=== PATIENT | male | born 1970 | race Two or more races ===

== ENCOUNTER → 2025-01-05 | Outpatient (CLI) | payer MEDICAID, SELFPAY ==
--- NOTE | 2025-01-05 15:13 | XR_ITS ---
Examination: PA lateral chest 2 views TECHNIQUE: Upright PA lateral chest 2 views Date and time: January 05, 2025 1539 hours INDICATIONS: Coughing beginning 4 days ago. FINDINGS: Early pneumonia in the posterior basal segment right lower lobe on the lateral view Normal heart size No pulmonary edema IMPRESSION: Early pneumonia posterior basal segment right lower lobe
== END | disposition home or self-care (01) ==
LOC: CDIM 15:06
PROVIDERS: PCP Nurse Practitioner Family; Referring Provider Nurse Practitioner Family; Visit Provider Nurse Practitioner Family
DX: J18.9 Pneumonia, unspecified organism (principal); Z91.89 Other specified personal risk factors, not elsewhere classified
CPT/HCPCS: 71046

== ENCOUNTER 2025-03-27 12:08 | Inpatient (IN) | payer MEDICAID, SELFPAY ==
[2025-03-27] VITALS (15 sets, daily range): BP systolic 101–138; BP diastolic 58–91; PULSE 73–90; RESP 13–20; TEMP 36.2–37; O2SAT 96–100; BMI 24.2; BMI 26.4
--- NOTE | 2025-03-27 13:11 | PD.EDGIBLD ---
ED GI Bleed RME/HPI General Chief complaint: GI Bleed Stated complaint: DARK STOOLS SINCE LAST NIGHT Time Seen by Provider: 03/27/25 12:12 Arrival date/time: 03/27/25 12:08 Limitations: no limitations RME / HPI RME / HPI Narrative: 55 year old male with history of hypertension, diabetes, liver cirrhosis secondary to alcohol abuse, GI bleed, thrombocytopenia, GERD presents to the ED for evaluation of black stools beginning last night. Accompanied by periumbilical and umbilical discomfort (which he attributes to a hernia), nausea, global weakness, and dizziness. No other associated symptoms reported. Denies fevers, chills, chest pain, cough, shortness of breath, vomiting, or bright red blood per rectum. Patient states he had a GI bleed and evaluated at [facility] 09/[address] Adame. States he had an EGD which showed bleeding varices with 2 band placements. Related Data Home Medications ?Medication ?Instructions ?Recorded ?Confirmed lisinopril 10 mg tablet 10 mg PO QDAY 09/21/17 01/20/25 furosemide 20 mg tablet 20 mg PO QDAY 01/20/25 01/20/25 metformin 1,000 mg tablet,extended 1,000 mg PO BID 01/20/25 01/20/25 release 24hr (osmotic) pantoprazole 40 mg tablet,delayed 40 mg PO QDAY 01/20/25 01/20/25 release propranolol 10 mg tablet 10 mg PO .QD 01/20/25 01/20/25 rosuvastatin 10 mg tablet 10 mg PO QDAY 01/20/25 01/20/25 spironolactone 25 mg tablet 25 mg PO QDAY 01/20/25 01/20/25 Allergies Allergy/AdvReac Type Severity Reaction Status Date / Time No Known Allergies Allergy Unverified 03/27/25 17:26 Review of Systems Review of Systems Systems Reviewed: All systems reviewed, normal except as documented Past Medical History Past Medical History CARDIAC: Positive Hypercholesterolemia and Hypertension GASTROINTESTINAL: Positive Cirrhosis and Esophageal Varices ENDOCRINE: Positive Diabetes Mellitus Type 1 OTHER HISTORY: Positive Blood Transfusions Family History FAMILY HISTORY: Negative Family Respiratory Disorders, Family Cardiac Disorders or Family Gastrointestinal Problems Social History SMOKING STATUS: Never smoker SUBSTANCE USE: former substance user (cocaine, meth) ED Exam General Limitations: Present no limitations General appearance: Present alert and other (Pale) Head Head exam: Present atraumatic Eye Eye exam: Present normal appearance, PERRL and EOMI ENT ENT exam: Present normal exam, normal oropharynx and mucous membranes moist Neck Neck exam: Present normal inspection, full ROM and trachea midline Chest Chest inspection: Present normal inspection and symmetric chest wall rise Respiratory Respiratory exam: Present normal lung sounds bilaterally Cardiovascular Cardiovascular exam: Present regular rate, normal rhythm and normal heart sounds Abdominal Exam Abdominal exam: Present soft, tenderness (slight tenderness to the umbilical area ), normal bowel sounds and other (No percussion tenderness); Absent guarding, rebound or rigidity Rectal Exam Rectal exam: Present heme (+) stool (dark colored stool ) Extremities Exam Extremities exam: Present normal inspection and full ROM Back Exam Back exam: Present normal inspection and full ROM Neurological Exam Neurological exam: Present alert, oriented X3 and CN II-XII intact Psychiatric Psychiatric exam: Present normal affect and normal mood Skin Skin exam: Present warm, dry, intact, pallor and other (Areas of hypopigmentation ) Course Quality Measures none Orders Category Date Time Status COVID-19 Screening Questionnaire NOW Care 03/27/25 17:16 Active Front End Software Engineer NOW Care 03/27/25 15:36 Active Front End Software Engineer STAT Care 03/27/25 13:12 Active Continuous Pulse Oximetry NOW Care 03/27/25 15:36 Completed Continuous Pulse Oximetry STAT Care 03/27/25 13:12 Completed Decision to Admit X1 Care 03/27/25 17:16 Completed EKG (ED ONLY) *Do not use* NOW Care 03/27/25 15:36 Completed Insert IV NOW Care 03/27/25 15:36 Active NPO STAT Care 03/27/25 13:12 Active Transfuse,blood/blood products NOW Care 03/27/25 14:[address] abdomen pelvis wo con Stat Exams 03/27/25 13:12 Completed EKG (ED Only) Stat Exams 03/27/25 15:36 Ordered XR chest 1V portable Stat Exams 03/27/25 13:14 Completed Antibody Identification Stat Lab 03/27/25 14:28 Results CBC Stat Lab 03/27/25 13:45 Completed Comprehensive Metabolic Panel Stat Lab 03/27/25 13:45 Completed Lipase Stat Lab 03/27/25 13:45 Completed Magnesium Stat Lab 03/27/25 13:45 Completed Occult Blood, Stool (LAB) Stat Lab 03/27/25 17:17 Ordered PTT [Partial Thromboplastin Time] Stat Lab 03/27/25 13:45 Completed Path Review Blood Smear Stat Lab 03/27/25 13:45 Completed Prothrombin Time with INR Stat Lab 03/27/25 13:45 Completed Type and Screen Stat Lab 03/27/25 14:28 Results Urinalysis Stat Lab 03/27/25 15:36 Ordered prbc [Red Blood Cells] Stat Lab 03/27/25 14:28 Results Pantoprazole Inj [Protonix Inj] Med 03/27/25 13:16 Discontinued 40 mg IVP X1 ONE Pantoprazole Inj [Protonix Inj] Med 03/27/25 17:04 Discontinued 40 mg IVP X1 ONE Sodium Chloride 0.9% 1000 ml [Ns] 1,000 ml Med 03/27/25 15:36 Active IV 100 mls/hr Oxygen Delivery NOW RT 03/27/25 15:36 Active Vital Signs Vital signs: Vital Signs Temperature 98.6 F 03/27/25 13:00 Pulse Rate 86 03/27/25 13:00 Respiratory Rate 18 03/27/25 13:00 Blood Pressure 105/68 03/27/25 13:00 Pulse Oximetry (%) 96 03/27/25 13:00 Oxygen Delivery Method Room Air 03/27/25 13:00 Pulse ox is 96% on room air which is adequate. GI Bleed MDM Narrative MDM Narrative:: IDora, am scribing for and in the presence of Dr. Carranza. 1700p: I spoke with GI Dr. Lawton. Discussed patients PMHx, HPI, ED course, exam findings, labs, and radiology results. He recommends Protonix and keep patient npo for EGD and colonoscopy tomorrow. 1714p: I spoke with hospitalist Dr. Jay. Discussed patients PMHx, HPI, ED course, exam findings, labs, and radiology results. The hospitalist agree to accept the patient for admission. 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 Adame. States he had an EGD which showed bleeding varices with 2 band placements. How is presenting disease/condition affected by chronic disease/condition?: exacerbated by Evaluation data The following diagnostics were reviewed and interpreted by me:: lab results, radiology exam(s) and EKG tracing(s) (EKG @ 1643p, interpreted by me, normal sinus rhythm, rate 86, no STEMI.) Lab and/or radiology exams considered but not ordered:: None Interpretation Summary: Ordering Physician: Laurent Carranza MD Date of Service: 03/27/25 Procedure(s): CT abdomen pelvis wo con Accession Number(s): [id number] cc: Laurent Carranza MD; Yoly Zamarripa PA-C ([employer]); Kavon Isaac MD~ Examination: CT abdomen and pelvis without contrast. Coronal 3-D reconstructions. Sagittal 2-D reconstructions. Date and time of exam: 03/27/2025 at 2:17 p.m. INDICATIONS: Bloody stools CTDI: vol (mGy): 8.91 DLP: (mGycm): 492 Technique: Axial images of the abdomen have been obtained, 3 mm slice thickness Intravenous contrast material has not been administered. Low dose protocols were performed. One or more of the following dose reduction techniques were used; automated exposure control, adjustment of the mA and/or KV according to patient size, use of iterative reconstruction technique. Findings: Since the previous CT on 11/20/2022 the patient has developed to noncalcified tiny nodules in the posterior base of the left lower lobe, one is 4 mm in diameter the other is 3 mm in diameter. In all other respects the lower lung zones appear clear normal. There is very significant circumferential intramural thickening of the lower esophagus, this is unchanged since the previous study. The liver is severely shrunken with markedly nodular surface contours indicating the presence of advanced cirrhosis. The size of the liver has also definitely shrunk when compared with the size on the previous abdominal CT study. The spleen is significantly enlarged as noted on the prior study. Pancreas appears all right there are numerous varices noted. The surface contour of both right and left kidneys is abnormally nodular. The patient had several tiny medullary calculi in the lower pole of the right kidney on the previous study these are no longer apparent. In the left kidney there are about 5 small nonobstructive calculi. In the left kidney there are about 3 nonobstructive calculi, these were present on the prior study. All of the small bowel loops are felt to be very minimally dilated in their contour. This is slightly more prominent than on the previous study Since the previous study the patient has developed a major ascites filling the entire abdomen and pelvis. The appendix is seen and normal in the right lower quadrant. The ascites is also distends the umbilical canal and it markedly distends the left inguinal canal Numerous surgical fixation devices are seen around the symphysis pubis quite probably and treatment of old very remote fracture here. IMPRESSION: 1. Since the previous CT exam in November 2022 the patient has developed to exceptionally tiny 4 mm diameter noncalcified nodules in the left lower lobe base these are of doubtful significance could but I cannot be entirely certain. A follow-up CT of the lower lungs would be recommended in about 1 year 2. Very significant circumferential thickening of the lower esophagus is again noted unchanged. This very likely is related to major esophageal varices which are evident on the images below the diaphragm. 3. Major end-stage cirrhosis of the liver, the liver has also shrunken additionally when compared with the previous CT. Significant splenomegaly. Again noted are numerous varices. 4. Major very extensive ascites as outlined above 5. The diameter of all of the small bowel loops is minimally prominent, correlate this with patient's physical signs and symptoms, it is probably secondary to the major ascites. 6. With reference to the patient's bloody stools, I do not see anything on these images that would strongly suggest the presence of any intraluminal lesions, although obviously the colon cannot be to well evaluated on a routine CT study 7. Bilateral nonobstructive renal calculi are again noted Dictated By: Kavon Isaac MD Signed By: <Electronically signed by Kavon Isaac MD in [place]> 03/27/25 1458 Ordering Physician: Laurent Carranza MD Date of Service: 03/27/25 Procedure(s): XR chest 1V portable Accession Number(s): [id number] cc: Laurent Carranza MD; Kavon Chris MD~ EXAMINATION: PA chest single view TECHNIQUE: Upright PA chest single view Date and time: March 27, 2025, 1320 hours INDICATIONS: Coughing today. FINDINGS: Mild to moderate enlargement left ventricle No lobar pneumonia or pulmonary edema The Kade structures are intact IMPRESSION: No pneumonia or pulmonary edema Dictated By: Kavon Chris MD Signed By: <Electronically signed by Kavon Chris MD in [place]> 03/27/25 1347 Medications / Prescriptions Medications or Prescriptions considered but not ordered:: None Medication administrations:: Medication Administration History Acetaminophen (Acetaminophen 325 Mg Tablet) 650 mg PO Q6H PRN PRN Reason: Fever >101.5 Stop: 04/26/25 17:18 Dextrose (Dextrose 50%-Water Inj 50 Ml Syringe) 25 ml IV Q15MIN PRN PRN Reason: BG 50-70 responsive npo pt Stop: 04/26/25 17:55 Dextrose (Dextrose 50%-Water Inj 50 Ml Syringe) 50 ml IV Q15MIN PRN PRN Reason: BG <50 OR BG <70 & pt unresponsive Stop: 04/26/25 17:55 Glucagon (Glucagon Inj 1 Mg Vial) 1 mg IM Q15MIN PRN PRN Reason: BG <70, and no IV access Sodium Chloride (Ns) 1,000 mls @ 100 mls/hr IV .Q10H ONE Stop: 03/28/25 01:35 Last Admin: 03/27/25 17:50 Dose: 100 mls/hr Documented By: SARAH Octreotide Acetate 1,000 mcg/ (Sodium Chloride) 102 mls @ 5.1 mls/hr IV .Q20H NICK; Protocol Stop: 04/01/25 17:29 Ceftriaxone Sodium/Dextrose (Rocephin/D5w 1gm Iv Premix) 1 gm in 50 mls @ 100 mls/hr IV QDAY@1400 NICK Stop: 04/03/25 17:29 Last Admin: 03/27/25 17:50 Dose: 100 mls/hr Documented By: SARAH Octreotide Acetate 1,000 mcg/ (Sodium Chloride) 102 mls @ 5.1 mls/hr IV .Q20H NICK; Protocol Stop: 03/28/25 13:29 Insulin Human Lispro (Insulin Lispro (Admelog) 1 Unit/0.01 Ml Unit) 0 unit SC AC [facility]; Protocol Stop: 04/27/25 07:29 Ondansetron HCl (Ondansetron Inj 2 Mg/Ml Inj 2 Ml) 4 mg IVP Q6H PRN; Protocol PRN Reason: NAUSEA OR VOMITING Stop: 04/26/25 17:18 Pantoprazole Sodium (Pantoprazole Inj 40 Mg Vial) 40 mg IVP BID [facility] Stop: 04/26/25 20:59 Discontinued Medications Pantoprazole Sodium (Pantoprazole Inj 40 Mg Vial) 40 mg IVP X1 ONE Stop: 03/27/25 13:17 Pantoprazole Sodium (Pantoprazole Inj 40 Mg Vial) 40 mg IVP X1 ONE Stop: 03/27/25 17:05 Last Admin: 03/27/25 17:46 Dose: 40 mg Documented By: SARAH Pantoprazole Sodium (Pantoprazole 40 Mg Tablet) 40 mg PO Q12HR [facility] Stop: 04/26/25 20:59 See above Consultations Consultation(s) initiated? (list below): No Diagnosis GI bleed differential diagnosis: esophageal varices, gastritis, Upper gastrointestinal hemorrhage, Lower gastrointestinal hemorrhage and melena Most likely diagnosis given after review of the tests above:: Upper GI bleed Anemia Cirrhosis Admission Indicated Admission indicated?: indicated Admission Request Was there a request for admission?: Yes Admission Attestation Admission request attestation: Discussed case with [] from Hospitalist service regarding admission. Discussed patients ED course, exam findings, labs, and radiology results. The Hospitalist [agrees,declines] to accept the patient for admission. Disposition Plan Disposition Plan: Admit Discharge Plan Plan Patient Disposition: Admit Acute Care w/in Hospital Problem List Clinical Impression: Upper gastrointestinal bleed, Anemia, Liver cirrhosis
--- NOTE | 2025-03-27 13:14 | XR_ITS ---
EXAMINATION: PA chest single view TECHNIQUE: Upright PA chest single view Date and time: March 27, 2025, 1320 hours INDICATIONS: Coughing today. FINDINGS: Mild to moderate enlargement left ventricle No lobar pneumonia or pulmonary edema The Kade structures are intact IMPRESSION: No pneumonia or pulmonary edema
[2025-03-27 13:59] LABS: Basophils # (Auto) 0.1 Thou/mm3 (0.0-0.2); Basophils % (Auto) 1 % (0-2.5); Eosinophils # (Auto) 0.2 Thou/mm3 (0.0-0.5); Eosinophils % (Auto) 2 % (0-10); Hematocrit 20.4 % (41.0-53.0); Immature Granulocytes Auto 0.03 Thou/mm3 (0.00-0.00); Lymphocytes # (Auto) 1.5 Thou/mm3 (1.0-4.8); Lymphocytes % (Auto) 18 % (10-50); Mean Corpuscular HGB Conc 31.4 g/dl (31.0-37.0); Mean Corpuscular Hemoglobin 24.2 pg (25.0-35.0); Mean Corpuscular Volume 77 fL (80-100); Monocytes # (Auto) 0.8 Thou/mm3 (0.0-0.8); Monocytes % (Auto) 9 % (0-12); Neutrophils # (Auto) 5.8 Thou/mm3 (1.8-7.7); Neutrophils % (Auto) 70 % (37-80); Nucleated Red Blood Cell # 0.00 Thou/mm3 (0.00-0.00); Nucleated Red Blood Cell % 0 /100 WBC (0); Platelet Count 164 Thou/mm3 (140-440); RDW Standard Deviation 49.1 fL (35.1-43.9); Red Blood Count 2.65 Miln/mm3 (4.50-5.90); White Blood Count 8.3 Thou/mm3 (3.8-10.6)
[2025-03-27 14:04] LABS: Hemoglobin 6.4 g/dL (13.5-16.0)
[2025-03-27 14:16] LABS: Alanine Aminotransferase 17 U/L (10-49); Albumin, Serum 2.9 gm/dL (3.5-5.0); Albumin/Globulin Ratio 0.9 (1.2-2.2); Alkaline Phosphatase 243 U/L (46-116); Anion Gap 8 (7-16); Aspartate Amino Transferase 26 U/L (0-34); BUN/Creatinine Ratio 15 Ratio (12-20); Bilirubin,Total 1.5 mg/dL (0.3-1.2); Blood Urea Nitrogen 20 mg/dL (9-23); Calcium 8.3 mg/dL (8.3-10.6); Calcium (Corrected) 9.2 mg/dL (8.5-10.1); Carbon Dioxide 21.3 mMol/L (20.0-31.0); Chloride 106 mMol/L (98-107); Creatinine (Component) 1.3 mg/dL (0.6-1.3); Estimated Creatinine Clearance 58.6 mL/min (>60); Globulin 3.3 gm/dL (2.3-3.5); Glucose 217 mg/dL (74-106); Lipase 25 U/L (12-53); Magnesium 1.5 mg/dL (1.6-2.6); Osmolality,Calculated 279 (275-295); Potassium 5.0 mMol/L (3.4-5.1); Sodium 135 mMol/L (136-145); Total Protein 6.2 gm/dL (5.7-8.2); eGFR > 60 See Note
[2025-03-27 14:24] LABS: INR 1.3 (0.9-1.3); Partial Thromboplastin Time 27.3 Seconds (22.0-36.0); Prothrombin Time 13.1 Seconds (9.0-12.2)
--- NOTE | 2025-03-27 15:36 | EKG_ITS ---
[facility] (Formerly [facility])[3] Test Date: 2025-03-27 Pat Name: MAURA LUCAS Department: Room: - Gender: Male Stage Manager: : 1970 Requested By: Laurent Cain Order Number: [id number] Reading MD: Laurent Cain Measurements Intervals [place] Rate: 86 P: 19 [place]: 162 QRS: 12 QRSD: 88 T: 30 QT: 372 QTc: 447 Interpretive Statements SINUS RHYTHM No previous ECG available for comparison /[id number]/[email or web address]/[id number]
[2025-03-27 16:14] LABS: Path Review Blood Smear Sent to Pathologist
[2025-03-27] MEDS: cefTRIAXone/D5w 1gm IV premix 1 GM/50 ML BAG IV (17:50)
[2025-03-27] MEDS: SODIUM CHLORIDE 0.9% 1000 ML 1,000 ML 100 ML IV (17:50)
--- NOTE | 2025-03-27 17:58 | PD.HHHP ---
Documentation for date of: 03/27/25 HPI - Hospitalist History of Present Illness History of present illness: Patient is a 55-year-old male with a medical history of cirrhosis secondary to alcohol use, splenomegaly, GI bleeds, diabetes mellitus type 2, primary hypertension, hyperlipidemia, vitamin D deficiency, and vitiligo presents to [facility] emergency department on 03/27/2025 with chief complaint of dark stools. Patient reports dark stools started approximately 24 to 36 hours ago and had not improved. He denies any alleviating or aggravating factors. Accompanied by umbilical discomfort (which he attributes to a hernia), nausea, global weakness, and dizziness. No other associated symptoms reported. Denies fevers, chills, chest pain, cough, shortness of breath, vomiting, or bright red blood per rectum. Patient states he had a GI bleed and evaluated at [facility] 09/[address] Adame. States he had an EGD which showed bleeding varices with 2 band placements. He states he has never had his belly drain for fluid. Social History: Former heavy drinker but quit 14 years ago, denies tobacco and illicit drugs Surgical History: Surgical repair of pelvic fracture in Family History: Noncontributory ED Course: Presenting vital signs: Temp 98.4 ?F, P82, RR 16, BP 113/63, O2 sat 100% on room air Pertinent laboratories: NA 135, K5.0, BUN 20, CR 1.3, GLU 217, WBC 8.3, hemoglobin 6.4, MCV 77, mag 1.5, T. bili 1.5, ALT 243, ALB 2.9 Pelvic ultrasound: Minimal ascites Testicular ultrasound: 3.4 X3 0.0 cm benign left epididymal simple cyst CT of abdomen and pelvis: Cirrhosis with shrunken liver, pulmonary nodules, ascites ED Management: 2 units PRBCs ordered, IV Protonix 80 mg x 1, 1 L fluid bolus IV x 1. Fecal occult blood test positive. Gastroenterology was consulted and recommends admission for further management of anemia and EGD. Review of Systems Review of Systems Systems Reviewed: All systems reviewed, normal except as documented Past Medical History Past Medical History CARDIAC: Positive Hypercholesterolemia and Hypertension GASTROINTESTINAL: Positive Cirrhosis and Esophageal Varices ENDOCRINE: Positive Diabetes Mellitus Type 1 OTHER HISTORY: Positive Blood Transfusions Family History FAMILY HISTORY: Negative Family Respiratory Disorders, Family Cardiac Disorders or Family Gastrointestinal Problems Social History SMOKING STATUS: Never smoker SUBSTANCE USE: former substance user (cocaine, meth) Meds Home Medications and Allergies Home Medications ?Medication ?Instructions ?Recorded ?Confirmed ?Type lisinopril 10 mg tablet 10 mg PO QDAY 09/21/17 01/20/25 History furosemide 20 mg tablet 20 mg PO QDAY 01/20/25 01/20/25 History metformin 1,000 mg tablet,extended 1,000 mg PO BID 01/20/25 01/20/25 History release 24hr (osmotic) pantoprazole 40 mg tablet,delayed 40 mg PO QDAY 01/20/25 01/20/25 History release propranolol 10 mg tablet 10 mg PO .QD 01/20/25 01/20/25 History rosuvastatin 10 mg tablet 10 mg PO QDAY 01/20/25 01/20/25 History spironolactone 25 mg tablet 25 mg PO QDAY 01/20/25 01/20/25 History Allergies Allergy/AdvReac Type Severity Reaction Status Date / Time No Known Allergies Allergy Unverified 03/27/25 17:26 Exam Vital Signs Temp Pulse Resp BP Pulse Ox O2 Del Method 98.4 F 82 16 111/58 L 100 Room Air 03/27/25 17:50 03/27/25 17:50 03/27/25 17:50 03/27/25 17:50 03/27/25 17:50 03/27/25 16:09 Narrative General appearance: Present alert and other (Pale) Head Head exam: Present atraumatic Eye Eye exam: Present normal appearance, PERRL and EOMI ENT ENT exam: Present normal exam, normal oropharynx and mucous membranes moist Neck Neck exam: Present normal inspection, full ROM and trachea midline Chest Chest inspection: Present normal inspection and symmetric chest wall rise Respiratory Respiratory exam: Present normal lung sounds bilaterally Cardiovascular Cardiovascular exam: Present regular rate, normal rhythm and normal heart sounds Abdominal Exam Abdominal exam: Present soft, tenderness (slight tenderness to the umbilical area ), normal bowel sounds and other (No percussion tenderness); Absent guarding, rebound or rigidity Rectal Exam Rectal exam: Present heme (+) stool (dark colored stool ) Extremities Exam Extremities exam: Present normal inspection and full ROM Back Exam Back exam: Present normal inspection and full ROM Neurological Exam Neurological exam: Present alert, oriented X3 and CN II-XII intact Psychiatric Psychiatric exam: Present normal affect and normal mood Skin Skin exam: Present warm, dry, intact, pallor and other (Areas of hypopigmentation ) Results - Hospitalist Labs Diagrams: 03/27/25 13:45 03/27/25 13:45 Labs: Short CBC 03/27/25 Range/Units 13:45 WBC 8.3 (3.8-10.6) Thou/mm3 Hgb 6.4 L* (13.5-16.0) g/dL Hct 20.4 L* (41.0-53.0) % Plt Count 164 (140-440) Thou/mm3 BMP 03/27/25 13:45 Sodium 135 L Potassium 5.0 Chloride 106 Carbon Dioxide 21.3 BUN 20 Creatinine 1.3 Glucose 217 H Calcium 8.3 Liver Function 03/27/25 Range/Units 13:45 Total Bilirubin 1.5 H (0.3-1.2) mg/dL AST 26 (0-34) U/L ALT 17 (10-49) U/L Alkaline Phosphatase 243 H (46-116) U/L Albumin 2.9 L (3.5-5.0) gm/dL Assessment & Plan -Hospitalist Additional Assessment Patient is a 55-year-old male with a medical history of cirrhosis secondary to alcohol use, splenomegaly, GI bleeds, diabetes mellitus type 2, primary hypertension, hyperlipidemia, vitamin D deficiency, and vitiligo presents to [facility] emergency department on 03/27/2025 with chief complaint of dark stools. #GI bleed #Acute blood loss anemia Most likely upper GI bleed given presentation with melena and history of esophageal varices evaluated at [facility] 09/[address] Adame. States he had an EGD which showed bleeding varices with 2 band placements On admission hemoglobin 6.4 and MCV 77, and fecal occult blood test positive Transfuse for hemoglobin less than 7, INR greater than 1.5, or platelets less than 50,000 Gastroenterology consulted, recommendations appreciated Hold all chemical anticoagulation Plan: Patient is high risk for life-threatening bleed and gastroenterology consulted with plans for EGD. 2 units PRBCs ordered and follow-up posttransfusion H&H. Start octreotide gtt and monitor blood sugars. Start IV Protonix. Start IV Rocephin. Low-dose IVF. #cirrhosis Secondary to previous chronic alcohol use CT abdomen and pelvis :major end-stage cirrhosis of the liver, the liver has also shrunken Signs of synthetic liver dysfunction with hyperbilirubinemia and hypoalbuminemia although no thrombocytopenia or coagulopathy present at this time Patient was counseled on the importance of establishing care with gastroenterology Plan: Avoid hepatotoxic agents. Pending home medication reconciliation to resume volume management medications when able. No significant lower extremity edema but ascites present with umbilical hernia. We will consider paracentesis prior to discharge. Counseled on outpatient vaccine series. #Diabetes mellitus type 2 - Plan: No A1c on file. Order A1c. Start insulin sliding scale with Accu-Cheks. Target blood sugar 140-180 while hospitalized. # Pulmonary nodules - PLan: As seen on chest x-ray. Outpatient surveillance and management. # Primary hypertension - Plan: Pending home medication reconciliation. Although blood pressure is soft at this time and will resume antihypertensive when able. # Hyperlipidemia - PLan: Order lipid panel. Resume home statin when tolerating diet. DVT prophylaxis: SCDs Diet: CLD and n.p.o. after midnight Code Status: Full code Dispo: Admitted for acute blood loss anemia secondary to GI bleed requiring blood transfusion and endoscopic intervention Dr. Misty MD Quality Measures Quality Measures none
--- NOTE | 2025-03-27 18:14 | PD.IMCONS ---
HPI Data of Consult Requesting Physician: Ector Jay MD [facility] Narrative Reason for consult: Melena, H/H 6.4/20.4 History of present illness: 55 years old male evaluated at request of the ER physician Dr. Carranza For the clinical presentation by this patient for black tarry stools And hemoglobin hematocrit 6.4 and 20.4 02/17/2022 patient had a hemoglobin hematocrit of 15.9 and 45.2 He did have a GI bleed and in September 2024 he had upper endoscopy done at [facility] with band ligation of the varices Patient quit drinking [address] scan of the abdomen and pelvis done today without contrast showed a new 4 mm left lower lobe lung nodule circumferential thickening of the distal esophagus Cirrhotic liver disease with tense ascites and splenomegaly No space-occupying lesions in the liver cc:: cc: Ector Jay MD Review of Systems Review of Systems Systems Reviewed: All systems reviewed, normal except as documented Past Medical History Surgical History OTHER SURGICAL HX: Diabetes mellitus type 2 liver cirrhosis thrombocytopenia Meds Home Medications and Allergies Home Medications ?Medication ?Instructions ?Recorded ?Confirmed ?Type lisinopril 10 mg tablet 10 mg PO QDAY 09/21/17 01/20/25 History furosemide 20 mg tablet 20 mg PO QDAY 01/20/25 01/20/25 History metformin 1,000 mg tablet,extended 1,000 mg PO BID 01/20/25 01/20/25 History release 24hr (osmotic) pantoprazole 40 mg tablet,delayed 40 mg PO QDAY 01/20/25 01/20/25 History release propranolol 10 mg tablet 10 mg PO .QD 01/20/25 01/20/25 History rosuvastatin 10 mg tablet 10 mg PO QDAY 01/20/25 01/20/25 History spironolactone 25 mg tablet 25 mg PO QDAY 01/20/25 01/20/25 History Allergies Allergy/AdvReac Type Severity Reaction Status Date / Time No Known Allergies Allergy Unverified 03/27/25 17:26 Exam Vital Signs Temp Pulse Resp BP Pulse Ox O2 Del Method 97.1 F 80 13 111/58 L 100 Room Air 03/27/25 18:04 03/27/25 18:04 03/27/25 18:04 03/27/25 18:04 03/27/25 18:04 03/27/25 16:09 Constitutional Comments: Chronically ill-appearing Routine Respiratory Exam Comments: Normal to auscultation Routine Abdominal Exam Comments: Positive for ascites Results Labs 03/27/25 13:45 03/27/25 13:45 Labs: Short CBC 03/27/25 Range/Units 13:45 WBC 8.3 (3.8-10.6) Thou/mm3 Hgb 6.4 L* (13.5-16.0) g/dL Hct 20.4 L* (41.0-53.0) % Plt Count 164 (140-440) Thou/mm3 BMP 03/27/25 13:45 Sodium 135 L Potassium 5.0 Chloride 106 Carbon Dioxide 21.3 BUN 20 Creatinine 1.3 Glucose 217 H Calcium 8.3 Liver Function 03/27/25 Range/Units 13:45 Total Bilirubin 1.5 H (0.3-1.2) mg/dL AST 26 (0-34) U/L ALT 17 (10-49) U/L Alkaline Phosphatase 243 H (46-116) U/L Albumin 2.9 L (3.5-5.0) gm/dL Assessment and Plan Additional Assessment & Plan Additional Plan: # Occult GI bleeding in the form of melena # Acute posthemorrhagic anemia # Cirrhotic liver disease with advanced portal hypertension and ascites and previous history of band ligation of the esophageal varices Suggestions Agree with the blood transfusion Octreotide at 50 mcg/h Protonix 40 mg IV push every 12 Serial CBC N.p.o. midnight tonight except meds Consent obtained for fiberoptic esophagogastroduodenoscopy possible biopsy possible therapeutic intervention under intravenous moderate sedation Will follow the patient Other medical problems include Diabetes mellitus type 2 Thank you very much for the opportunity to participate in the care of this patient
--- NOTE | 2025-03-27 19:24 | PC.NURSE ---
Patient report received from Goran GREGORIO. Patient has been admitted to the hospital, patient will be moved to the unit at change of shift, this Nurse will be calling report shortly. Patient is awake, alert, resting in bed at its lowest position with wheels locked and call light within reach. Patient care assumed at this time.
[2025-03-27] MEDS: OCTREOTIDE ACET INJ 1,000 MCG in SODIUM CHLORIDE 0.9% 100 ML 5.1 MCG IV (19:37)
[2025-03-28] VITALS (17 sets, daily range): BP systolic 107–160; BP diastolic 66–103; PULSE 60–96; RESP 16–29; TEMP 36.4–36.8; O2SAT 92–100
[2025-03-28 05:16] LABS: OBS Card Expiration Date 2028-02-08; OBS Developer Expiration Date 2027-02-28; OBS QC OK? Yes; Occult Blood, Stool Positive (Negative)
[2025-03-28 06:19] LABS: Basophils # (Auto) 0.0 Thou/mm3 (0.0-0.2); Basophils % (Auto) 1 % (0-2.5); Eosinophils # (Auto) 0.2 Thou/mm3 (0.0-0.5); Eosinophils % (Auto) 3 % (0-10); Hematocrit 22.0 % (41.0-53.0); Immature Granulocytes Auto 0.01 Thou/mm3 (0.00-0.00); Lymphocytes # (Auto) 0.9 Thou/mm3 (1.0-4.8); Lymphocytes % (Auto) 17 % (10-50); Mean Corpuscular HGB Conc 32.7 g/dl (31.0-37.0); Mean Corpuscular Hemoglobin 26.2 pg (25.0-35.0); Mean Corpuscular Volume 80 fL (80-100); Monocytes # (Auto) 0.5 Thou/mm3 (0.0-0.8); Monocytes % (Auto) 11 % (0-12); Neutrophils # (Auto) 3.5 Thou/mm3 (1.8-7.7); Neutrophils % (Auto) 69 % (37-80); Nucleated Red Blood Cell # 0.00 Thou/mm3 (0.00-0.00); Nucleated Red Blood Cell % 0 /100 WBC (0); RDW Standard Deviation 48.7 fL (35.1-43.9); Red Blood Count 2.75 Miln/mm3 (4.50-5.90); White Blood Count 5.2 Thou/mm3 (3.8-10.6)
[2025-03-28 06:30] LABS: Hemoglobin 7.2 g/dL (13.5-16.0); INR 1.3 (0.9-1.3); Platelet Count 76 Thou/mm3 (140-440); Prothrombin Time 14.0 Seconds (9.0-12.2)
[2025-03-28 06:35] LABS: Slide Review Platelets confirmed
[2025-03-28 06:43] LABS: Alanine Aminotransferase 15 U/L (10-49); Albumin, Serum 2.5 gm/dL (3.5-5.0); Albumin/Globulin Ratio 0.8 (1.2-2.2); Alkaline Phosphatase 201 U/L (46-116); Anion Gap 10 (7-16); Aspartate Amino Transferase 23 U/L (0-34); BUN/Creatinine Ratio 20 Ratio (12-20); Bilirubin,Total 1.4 mg/dL (0.3-1.2); Blood Urea Nitrogen 22 mg/dL (9-23); Calcium 7.4 mg/dL (8.3-10.6); Calcium (Corrected) 8.6 mg/dL (8.5-10.1); Carbon Dioxide 21.0 mMol/L (20.0-31.0); Cardiac Risk Estimate 5.5 RATIO (4.0-6.7); Chloride 107 mMol/L (98-107); Cholesterol 88 mg/dL (132-200); Creatinine (Component) 1.1 mg/dL (0.6-1.3); Estimated Creatinine Clearance 69.3 mL/min (>60); Globulin 3.0 gm/dL (2.3-3.5); Glucose 196 mg/dL (74-106); HDL Cholesterol 16 mg/dL (40-60); LDL Cholesterol,Calculated 46 mg/dL (0-130); Magnesium 1.4 mg/dL (1.6-2.6); Osmolality,Calculated 283 (275-295); Phosphorous 3.5 mg/dL (2.4-5.1); Potassium 5.1 mMol/L (3.4-5.1); Sodium 138 mMol/L (136-145); Total Protein 5.5 gm/dL (5.7-8.2); Triglycerides 130 mg/dL (30-150); eGFR > 60 See Note
[2025-03-28 06:51] LABS: Glucose Estimated Average 197 mg/dL (80-131); Hemoglobin A1C 8.5 % Hgb (4.8-6.0)
--- NOTE | 2025-03-28 09:35 | PC.SS ---
This is 55-year-old, male who presented to the ED due to suffering from dark stools. Patient appeared alert and oriented to self, place and situation. Patient was a poor historian. Patient reported that he resides in a home. He was able to verify his address and phone number. Patient reported that he is independent with all ADLs, no DME use. Patient assigned his aunt, Jovanna, as his primary medical surrogate decision maker. Patient's PCP is the [facility]. When medically clear, patient will return home. Patient needs transportation. Discharge plan: return home, will need transportation.
[2025-03-28] MEDS: cefTRIAXone/D5w 1gm IV premix 1 GM/50 ML BAG IV (13:07)
--- NOTE | 2025-03-28 14:09 | ESPR_ITS ---
<Statement entered by James Woodward MD - 03/28/25 16:31> No acute overnight events. Seen and examined at bedside and resting comfortably in bed. Denies any abdominal pain, nausea, vomiting but noted to have a dark bowel movement this morning. Vital signs stable. CBC shows increased hemoglobin from 6.4 only to 7.2 after 2 units PRBC so will order repeat H&H and transfuse if < 7. Chem panel shows A1c of 8.5% and t bili/ALP slightly downtrending. Pending EGD today and order abdominal ultrasound for evaluation of possible paracentesis. Will follow-up on EGD results and GI recommendations. Continuing octreotide drip, PPI, and ceftriaxone for GI bleed. ----- Note reviewed and agree with care plan as documented. Please refer to the note below for further details. Plan discussed with attending physician Dr. Misty Woodward MD PGY-2 Internal Medicine Documentation for date of: 03/28/25 Subjective Subjective Interval history: No acute events overnight. Today patient was seen and examined at at bedside. Patient reported episode of black starry stool this morning. Denies lightheadedness, nausea, vomiting, abdominal pain and chills . Vitals are stable patient is afebrile. CBC significant for normocytic anemia with hemoglobin 7.2 and hematocrit 2:24 units of PRBC. Noted drop in platelet count to 76K. Ordered repeat CBC, will follow-up. Upon physical examination noted abdominal distention, ultrasound paracentesis ordered. Gastroenterology consulted, plan for EGD tonight. Exam Vital Signs Temp Pulse Resp BP Pulse Ox O2 Del Method O2 Flow Rate 97.8 F 93 16 131/76 H 95 Room Air 99 03/28/25 12:03/28/25 12:03/28/25 12:03/28/25 12:03/28/25 12:03/28/25 12:00 03/27/25 19:43 Narrative Exam General: Alert, no acute distress.Conversational and non-toxic appearing. Skin: Warm, dry, intact. No rash or ecchymoses. pallor areas of hypopigmentation (vitiligo) Head: Normocephalic, atraumatic. Eye: Normal conjunctiva, PERRL. Throat: Oral mucosa moist. No obvious lesions in oropharynx. Cardiovascular: Regular rate and rhythm, no murmur, +S1/S2. Respiratory: Lungs are clear to auscultation, respirations unlabored, no crackles, no wheezing. Gastrointestinal: Soft, nontender, distended. Thin, translucent, membranous protrusion noted at the umbilicus tender to palpation No guarding or rebound tenderness. Extremities: No edema, no cyanosis, no clubbing. Neuro: Alert and oriented x3.No focal deficits observed. Conversant, moving all extremities. No overt cerebellar signs/incoordination. Psychiatric: Cooperative, appropriate affect Objective Labs 03/29/25 05:17 03/29/25 05:17 Labs: Laboratory Results - last 24 hr 03/27/25 03/27/25 03/28/25 13:45 14:28 03:00 WBC RBC Hgb Hct MCV MCH MCHC RDW Std Deviation Plt Count Neut % (Auto) Lymph % (Auto) [place] % (Auto) Eos % (Auto) Baso % (Auto) Neut # (Auto) Lymph # (Auto) [place] # (Auto) Eos # (Auto) Baso # (Auto) Immature Gran # (Auto) Absolute Nucleated RBC Immature Gran % Nucleated RBC % Smear Path Review Sent to Pathologist PT 13.1 H INR 1.3 APTT 27.3 Sodium 135 L Potassium 5.0 Chloride 106 Carbon Dioxide 21.3 Anion Gap 8 BUN 20 Creatinine 1.3 Estim Creat Clear Calc 58.6 L eGFR > 60 BUN/Creatinine Ratio [address] Glu mg/dL Hemoglobin A1c Calculated Osmolality 279 Calcium 8.3 Corrected Calcium 9.2 Phosphorus Magnesium 1.5 L Total Bilirubin 1.5 H AST 26 ALT 17 Alkaline Phosphatase 243 H Total Protein 6.2 Albumin 2.9 L Globulin 3.3 Albumin/Globulin Ratio 0.9 L Triglycerides Cholesterol LDL Cholesterol, Calc HDL Cholesterol Cholesterol/HDL Ratio Lipase 25 Stool Occult Blood Positive A Misc Test Result Blood Type O Positive Antibody Screen POSITIVE Antibody Identification Anti-K Crossmatch See Detail Blood Bank Wristband ID Yes 03/28/25 05:52 WBC 5.2 RBC 2.75 L Hgb 7.2 L Hct 22.0 L MCV 80 MCH 26.2 MCHC 32.7 RDW Std Deviation 48.7 H Plt Count 76 L D Neut % (Auto) 69 Lymph % (Auto) 17 [place] % (Auto) 11 Eos % (Auto) 3 Baso % (Auto) 1 Neut # (Auto) 3.5 Lymph # (Auto) 0.9 L [place] # (Auto) 0.5 Eos # (Auto) 0.2 Baso # (Auto) 0.0 Immature Gran # (Auto) 0.01 H Absolute Nucleated RBC 0.00 Immature Gran % 0 Nucleated RBC % 0 Smear Path Review PT 14.0 H INR 1.3 APTT Sodium 138 Potassium 5.1 Chloride 107 Carbon Dioxide 21.0 Anion Gap 10 BUN 22 Creatinine 1.1 Estim Creat Clear Calc 69.3 eGFR > 60 BUN/Creatinine Ratio [address] Glu mg/dL 197 H Hemoglobin A1c 8.5 H Calculated Osmolality 283 Calcium 7.4 L Corrected Calcium 8.6 Phosphorus 3.5 Magnesium 1.4 L Total Bilirubin 1.4 H AST 23 ALT 15 Alkaline Phosphatase 201 H D Total Protein 5.5 L Albumin 2.5 L Globulin 3.0 Albumin/Globulin Ratio 0.8 L Triglycerides 130 Cholesterol 88 L LDL Cholesterol, Calc 46 HDL Cholesterol 16 L Cholesterol/HDL Ratio 5.5 Lipase Stool Occult Blood Misc Test Result Platelets confirmed Blood Type Antibody Screen Antibody Identification Crossmatch Blood Bank Wristband ID Quality Measures Quality Measures none Assessment & Plan Assessment Current Active Medications: Generic Name Dose Route Start Last Admin Trade Name Freq PRN Reason Stop Dose Admin Acetaminophen 650 mg 03/27/25 17:19 Acetaminophen 325 Mg Tablet PO 04/26/25 17:18 Q6H PRN Fever >101.5 Atorvastatin Calcium 40 mg 03/28/25 16:00 Atorvastatin Calcium 20 Mg Tablet PO 04/27/25 15:59 QDAY [facility] Dextrose 25 ml 03/27/25 17:56 Dextrose 50%-Water Inj 50 Ml Syringe IV 04/26/25 17:55 Q15MIN PRN BG 50-70 responsive npo pt Dextrose 50 ml 03/27/25 17:56 Dextrose 50%-Water Inj 50 Ml Syringe IV 04/26/25 17:55 Q15MIN PRN BG <50 OR BG <70 & pt unresponsive Glucagon 1 mg 03/27/25 17:56 Glucagon Inj 1 Mg Vial IM Q15MIN PRN BG <70, and no IV access Octreotide Acetate 1,000 mcg/ 102 mls @ 5.1 mls/hr 03/28/25 15:45 Sodium Chloride IV 04/01/25 19:44 .Q20H NICK Protocol 50 MCG/HR Ceftriaxone Sodium/Dextrose 1 gm in 50 mls @ 100 mls/hr 03/27/25 17:30 03/28/25 13:07 Rocephin/D5w 1gm Iv Premix IV 04/03/25 17:29 100 mls/hr QDAY@1400 NICK Administration Insulin Human Lispro 0 unit 03/28/25 06:00 03/28/25 11:06 Insulin Lispro (Admelog) 1 Unit/0.01 Ml Unit SC 04/27/25 05:59 Not Given Q6HR NICK Protocol Ondansetron HCl 4 mg 03/27/25 17:19 Ondansetron Inj 2 Mg/Ml Inj 2 Ml IVP 04/26/25 17:18 Q6H PRN NAUSEA OR VOMITING Protocol Pantoprazole Sodium 40 mg 03/27/25 21:00 03/28/25 08:00 Pantoprazole Inj 40 Mg Vial IVP 04/26/25 20:59 40 mg BID NICK Administration Plan Mr. Taylor is a 55-year-old male with a medical history of cirrhosis secondary to alcohol use, splenomegaly, GI bleeds, diabetes mellitus type 2, primary hypertension, hyperlipidemia, vitamin D deficiency, and vitiligo presents to [facility] emergency department on 03/27/2025 with chief complaint of dark stools. #GI bleed #Acute blood loss anemia Most likely upper GI bleed given presentation with melena and history of esophageal varices evaluated at [facility] 09/[address] Adame. States he had an EGD which showed bleeding varices with 2 band placements On admission hemoglobin 6.4 and MCV 77, and fecal occult blood test positive - Patient is high risk for life-threatening bleed and gastroenterology consulted with plans for EGD. - 2 units PRBCs ordered and follow-up posttransfusion H&H. Plan: - Transfuse for hemoglobin less than 7, INR greater than 1.5, or platelets less than 50,000 - octreotide gtt and monitor blood sugars. - IV Protonix. - IV Rocephin for SBP prophylaxis (03/27-) - Low-dose IVF - Pain nausea management as needed - Gastroenterology consulted, recommendations appreciated- Hold all chemical anticoagulation, EGD today #Cirrhosis #Secondary to previous chronic alcohol use #Splenomegaly CT abdomen and pelvis :major end-stage cirrhosis of the liver, the liver has also shrunken Signs of synthetic liver dysfunction with hyperbilirubinemia and hypoalbuminemia although no thrombocytopenia or coagulopathy present at this time Patient was counseled on the importance of establishing care with gastroenterology No significant lower extremity edema but ascites present with umbilical hernia. Home regimen: Furosemide 20 mg p.o., lisinopril 10 mg p.o., propranolol 10 mg p.o., spironolactone 25 mg p.o. Plan: -Avoid hepatotoxic agents. -No significant lower extremity edema but ascites present with umbilical hernia. US paracentesis order, pending read - Counseled on outpatient vaccine series - Resumed home regimen- hold if BP is soft #Diabetes mellitus type 2 03/28/25 A1c: 8.5, Glucoses 197. Plan - insulin sliding scale with Accu-Cheks. Target blood sugar 140-180 while hospitalized. #Primary hypertension Home lisinopril 10mg, Plan: - Pending home medication reconciliation. - Although blood pressure is soft at this time and will resume antihypertensive when able. # Hyperlipidemia Home: rosuvastatin 10mg. Lipid panel: Triglyceride 130, cholesterol 88, LDL cholesterol 46, HDL cholesterol 16 Plan: - Order lipid panel. - Resume home statin when tolerating diet. # Pulmonary nodules As seen on chest x-ray. Plan: - Outpatient surveillance and management. Hospital management: Lines: peripheral IV Diet: NPO Bowel: n/a GI prophylaxis: pantoprazole DVT prophylaxis: SCDs Disposition: Admitted for acute blood loss anemia secondary to GI bleed requiring blood transfusion and endoscopic intervention CODE STATUS: Full code Patient assessed under supervision of attending physician and senior resident Dr. Woodward PGY-2 Zainab Shankar MD PGY-1, Internal Medicine Please note: this document was transcribed using voice recognition technology; minor inaccuracies may be present. Attending Provider Attestation/Addendum I have examined the patient, reviewed labs and imaging findings, discussed the case with the resident(s), and reviewed entered orders. I agree with the plan of care as outlined in this note. Dr. Misty MD
[2025-03-28] MEDS: OCTREOTIDE ACET INJ 1,000 MCG in SODIUM CHLORIDE 0.9% 100 ML 5.1 MCG IV (14:18)
[2025-03-28 18:38] LABS: Basophils # (Auto) 0.1 Thou/mm3 (0.0-0.2); Basophils % (Auto) 1 % (0-2.5); Eosinophils # (Auto) 0.3 Thou/mm3 (0.0-0.5); Eosinophils % (Auto) 6 % (0-10); Hematocrit 22.9 % (41.0-53.0); Immature Granulocytes Auto 0.01 Thou/mm3 (0.00-0.00); Lymphocytes # (Auto) 0.9 Thou/mm3 (1.0-4.8); Lymphocytes % (Auto) 20 % (10-50); Mean Corpuscular HGB Conc 33.2 g/dl (31.0-37.0); Mean Corpuscular Hemoglobin 26.3 pg (25.0-35.0); Mean Corpuscular Volume 79 fL (80-100); Monocytes # (Auto) 0.6 Thou/mm3 (0.0-0.8); Monocytes % (Auto) 13 % (0-12); Neutrophils # (Auto) 2.6 Thou/mm3 (1.8-7.7); Neutrophils % (Auto) 59 % (37-80); Nucleated Red Blood Cell # 0.00 Thou/mm3 (0.00-0.00); Nucleated Red Blood Cell % 0 /100 WBC (0); Platelet Count 89 Thou/mm3 (140-440); RDW Standard Deviation 48.5 fL (35.1-43.9); Red Blood Count 2.89 Miln/mm3 (4.50-5.90); White Blood Count 4.3 Thou/mm3 (3.8-10.6)
[2025-03-28 18:39] LABS: Hemoglobin 7.6 g/dL (13.5-16.0)
[2025-03-29] VITALS (12 sets, daily range): BP systolic 126–148; BP diastolic 81–99; PULSE 69–96; RESP 16–19; TEMP 36.4–37.2; O2SAT 95–96
[2025-03-29] MEDS: INSULIN LISPRO (AdmeLOG) 1 UNIT/0.01 ML UNIT SC ×3 (00:04→23:58)
[2025-03-29 06:57] LABS: Basophils # (Auto) 0.1 Thou/mm3 (0.0-0.2); Basophils % (Auto) 1 % (0-2.5); Eosinophils # (Auto) 0.3 Thou/mm3 (0.0-0.5); Eosinophils % (Auto) 7 % (0-10); Hematocrit 22.9 % (41.0-53.0); Immature Granulocytes Auto 0.01 Thou/mm3 (0.00-0.00); Lymphocytes # (Auto) 0.8 Thou/mm3 (1.0-4.8); Lymphocytes % (Auto) 21 % (10-50); Mean Corpuscular HGB Conc 32.8 g/dl (31.0-37.0); Mean Corpuscular Hemoglobin 26.2 pg (25.0-35.0); Mean Corpuscular Volume 80 fL (80-100); Monocytes # (Auto) 0.5 Thou/mm3 (0.0-0.8); Monocytes % (Auto) 13 % (0-12); Neutrophils # (Auto) 2.3 Thou/mm3 (1.8-7.7); Neutrophils % (Auto) 58 % (37-80); Nucleated Red Blood Cell # 0.00 Thou/mm3 (0.00-0.00); Nucleated Red Blood Cell % 0 /100 WBC (0); Platelet Count 82 Thou/mm3 (140-440); RDW Standard Deviation 49.1 fL (35.1-43.9); Red Blood Count 2.86 Miln/mm3 (4.50-5.90); White Blood Count 4.0 Thou/mm3 (3.8-10.6)
[2025-03-29 06:59] LABS: Hemoglobin 7.5 g/dL (13.5-16.0)
[2025-03-29 07:12] LABS: Alanine Aminotransferase < 7 U/L (10-49); Albumin, Serum 2.6 gm/dL (3.5-5.0); Albumin/Globulin Ratio 0.8 (1.2-2.2); Alkaline Phosphatase 201 U/L (46-116); Anion Gap 10 (7-16); Aspartate Amino Transferase 26 U/L (0-34); BUN/Creatinine Ratio 18 Ratio (12-20); Bilirubin,Total 1.6 mg/dL (0.3-1.2); Blood Urea Nitrogen 18 mg/dL (9-23); Calcium 7.8 mg/dL (8.3-10.6); Calcium (Corrected) 8.9 mg/dL (8.5-10.1); Carbon Dioxide 22.4 mMol/L (20.0-31.0); Chloride 109 mMol/L (98-107); Creatinine (Component) 1.0 mg/dL (0.6-1.3); Estimated Creatinine Clearance 76.2 mL/min (>60); Globulin 3.1 gm/dL (2.3-3.5); Glucose 158 mg/dL (74-106); Osmolality,Calculated 286 (275-295); Potassium 4.2 mMol/L (3.4-5.1); Sodium 141 mMol/L (136-145); Total Protein 5.7 gm/dL (5.7-8.2); eGFR > 60 See Note
[2025-03-29] MEDS: PROPRANOLOL 10 MG TABLET PO (08:46)
[2025-03-29] MEDS: SPIRONOLACTONE 25 MG TABLET PO (08:46)
[2025-03-29] MEDS: OCTREOTIDE ACET INJ 1,000 MCG in SODIUM CHLORIDE 0.9% 100 ML 5.1 MCG IV (08:54)
--- NOTE | 2025-03-29 10:09 | ESPR_ITS ---
<Statement entered by James Woodward MD - 03/29/25 14:42> No acute overnight events. Seen and examined at bedside, resting comfortably in bed. Denies abdominal pain, nausea, vomiting. Underwent EGD yesterday and was found to have grade 3 esophageal varices that were incompletely eradicated but banded. GI recommending octreotide drip, Lasix 20 mg twice daily, spironolactone 25 mg twice daily, metolazone 2.5 mg daily, clear liquid diet that can advance to 2 g sodium diet with 1 L oral fluid restriction for the first 24 hours. Paracentesis ordered, will likely be done tomorrow. Otherwise, vital signs stable, CBC shows stable hemoglobin, CHEM panel showing slight increase in T. bili and stable alk phos but LFTs normal. ----- Note reviewed and agree with care plan as documented. Please refer to the note below for further details. Plan discussed with attending physician Dr. Misty Woodward MD PGY-2 Internal Medicine Documentation for date of: 03/29/25 Subjective Subjective Interval history: No acute events overnight. EGD was done yesterday, found to have grade III esophageal varices which was banded.gastroenterology recommended to continue octreotide at a rate of 50 cc/h, continue with clear liquid diet and advance as tolerated. Today patient was seen and examined at bedside, denies nausea, vomiting, abdominal pain, lightheadedness. Vitals are stable saturating well on room air. Labs reviewed. CBC noted stable H&H. CHEM panel slight increase in T. bili, but otherwise unremarkable from prior labs. Resume home lisinopril 10 mg, propranolol 10 mg, spironolactone 25 mg. Order the peritoneal fluid analysis. Fill cytology report. Exam Vital Signs Temp Pulse Resp BP Pulse Ox O2 Del Method O2 Flow Rate 97.6 F 85 18 144/94 H 95 Room Air 3 03/29/25 07:50 03/29/25 08:47 03/29/25 07:50 03/29/25 08:47 03/29/25 07:50 03/29/25 07:50 03/28/25 16:55 Narrative Exam General: Alert, no acute distress.Conversational and non-toxic appearing. Skin: Warm, dry, intact. No rash or ecchymoses. pallor areas of hypopigmentation (vitiligo) Head: Normocephalic, atraumatic. Eye: Normal conjunctiva, PERRL. Throat: Oral mucosa moist. No obvious lesions in oropharynx. Cardiovascular: Regular rate and rhythm, no murmur, +S1/S2. Respiratory: Lungs are clear to auscultation, respirations unlabored, no crackles, no wheezing. Gastrointestinal: Soft, nontender, distended. Thin, translucent, membranous protrusion noted at the umbilicus tender to palpation No guarding or rebound tenderness. Extremities: No edema, no cyanosis, no clubbing. Neuro: Alert and oriented x3.No focal deficits observed. Conversant, moving all extremities. No overt cerebellar signs/incoordination. Psychiatric: Cooperative, appropriate affect Objective Labs 03/30/25 04:49 03/30/25 04:49 Labs: Laboratory Results - last 24 hr 03/28/25 03/29/25 18:19 05:17 WBC 4.3 4.0 RBC 2.89 L 2.86 L Hgb 7.6 L 7.5 L Hct 22.9 L 22.9 L MCV 79 L 80 MCH 26.3 26.2 MCHC 33.2 32.8 RDW Std Deviation 48.5 H 49.1 H Plt Count 89 L 82 L Neut % (Auto) 59 58 Lymph % (Auto) 20 21 [place] % (Auto) 13 H 13 H Eos % (Auto) 6 7 Baso % (Auto) 1 1 Neut # (Auto) 2.6 2.3 Lymph # (Auto) 0.9 L 0.8 L [place] # (Auto) 0.6 0.5 Eos # (Auto) 0.3 0.3 Baso # (Auto) 0.1 0.1 Immature Gran # (Auto) 0.01 H 0.01 H Absolute Nucleated RBC 0.00 0.00 Immature Gran % 0 0 Nucleated RBC % 0 0 Sodium 141 Potassium 4.2 D Chloride 109 H Carbon Dioxide 22.4 Anion Gap 10 BUN 18 Creatinine 1.0 Estim Creat Clear Calc 76.2 eGFR > 60 BUN/Creatinine Ratio 18 Glucose 158 H Calculated Osmolality 286 Calcium 7.8 L Corrected Calcium 8.9 Total Bilirubin 1.6 H AST 26 ALT < 7 L Alkaline Phosphatase 201 H Total Protein 5.7 Albumin 2.6 L Globulin 3.1 Albumin/Globulin Ratio 0.8 L Quality Measures Quality Measures none Assessment & Plan Assessment Current Active Medications: Generic Name Dose Route Start Last Admin Trade Name Freq PRN Reason Stop Dose Admin Acetaminophen 650 mg 03/27/25 17:19 Acetaminophen 325 Mg Tablet PO 04/26/25 17:18 Q6H PRN Fever >101.5 Atorvastatin Calcium 40 mg 03/28/25 16:00 Atorvastatin Calcium 20 Mg Tablet PO 04/27/25 15:59 On Hold: 03/28/25 16:00 QDAY NICK Dextrose 25 ml 03/27/25 17:56 Dextrose 50%-Water Inj 50 Ml Syringe IV 04/26/25 17:55 Q15MIN PRN BG 50-70 responsive npo pt Dextrose 50 ml 03/27/25 17:56 Dextrose 50%-Water Inj 50 Ml Syringe IV 04/26/25 17:55 Q15MIN PRN BG <50 OR BG <70 & pt unresponsive Furosemide 20 mg 03/29/25 09:00 03/29/25 08:47 Furosemide 20 Mg Tablet PO 04/28/25 08:59 20 mg QDAY NICK Administration Glucagon 1 mg 03/27/25 17:56 Glucagon Inj 1 Mg Vial IM Q15MIN PRN BG <70, and no IV access Octreotide Acetate 1,000 mcg/ 102 mls @ 5.1 mls/hr 03/28/25 15:45 03/29/25 08:54 Sodium Chloride IV 04/01/25 19:44 50 mcg/hr .Q20H NICK 5.1 mls/hr Protocol Administration 50 MCG/HR Ceftriaxone Sodium/Dextrose 1 gm in 50 mls @ 100 mls/hr 03/27/25 17:30 03/28/25 13:07 Rocephin/D5w 1gm Iv Premix IV 04/03/25 17:29 100 mls/hr QDAY@1400 NICK Administration Sodium Chloride 500 mls @ 20 mls/hr 03/28/25 16:09 03/28/25 18:13 Ns IV 03/29/25 16:08 Not Given .Q24H ONE Insulin Human Lispro 0 unit 03/28/25 06:00 03/29/25 05:38 Insulin Lispro (Admelog) 1 Unit/0.01 Ml Unit SC 04/27/25 05:59 Not Given Q6HR [facility] Protocol Lisinopril 10 mg 03/29/25 09:00 03/29/25 08:45 Lisinopril 2.5 Mg Tablet PO 04/28/25 08:59 10 mg QDAY NICK Administration Ondansetron HCl 4 mg 03/27/25 17:19 Ondansetron Inj 2 Mg/Ml Inj 2 Ml IVP 04/26/25 17:18 Q6H PRN NAUSEA OR VOMITING Protocol Pantoprazole Sodium 40 mg 03/27/25 21:00 03/29/25 08:45 Pantoprazole Inj 40 Mg Vial IVP 04/26/25 20:59 40 mg BID NICK Administration Propranolol HCl 10 mg 03/29/25 09:00 03/29/25 08:46 Propranolol 10 Mg Tablet PO 04/28/25 08:59 10 mg QD NICK Administration Spironolactone 25 mg 03/29/25 09:00 03/29/25 08:46 Spironolactone 25 Mg Tablet PO 04/28/25 08:59 25 mg QDAY NICK Administration Plan Mr. Taylor is a 55-year-old male with a medical history of cirrhosis secondary to alcohol use, splenomegaly, GI bleeds, diabetes mellitus type 2, primary hypertension, hyperlipidemia, vitamin D deficiency, and vitiligo presents to [facility] emergency department on 03/27/2025 with chief complaint of dark stools. #Grade III esophageal varices, banded #Upper GI bleed #Acute posthemorrhagic anemia #Melena Most likely upper GI bleed given presentation with melena and history of esophageal varices evaluated at [facility] 09/[address] Adame. States he had an EGD which showed bleeding varices with 2 band placements On admission hemoglobin 6.4 and MCV 77, and fecal occult blood test positive - Patient is high risk for life-threatening bleed and gastroenterology consulted with plans for EGD. - 2 units PRBCs ordered and follow-up posttransfusion H&H. - 03/28/14 EGD: Grade 3 esophageal varices with stigmata of recent bleeding, incompletely eradicated. Banded. Gastritis, characterized by erythema. Plan: - Transfuse for hemoglobin less than 7, INR greater than 1.5, or platelets less than 50,000 - Continue octreotide gtt and monitor blood sugars. - IV Protonix. - IV Rocephin for SBP prophylaxis (03/27-) - Low-dose IVF - Pain nausea management as needed - Gastroenterology consulted, recommendations appreciated- continue octreotide gtt, adance diet as tolerated, fluid restriction in 24 hours and patient has tense ascites. #Cirrhosis #Secondary to previous chronic alcohol use #Splenomegaly # Ascites CT abdomen and pelvis :major end-stage cirrhosis of the liver, the liver has also shrunken Signs of synthetic liver dysfunction with hyperbilirubinemia and hypoalbuminemia although no thrombocytopenia or coagulopathy present at this time Patient was counseled on the importance of establishing care with gastroenterology No significant lower extremity edema but ascites present with umbilical hernia. Home regimen: Furosemide 20 mg p.o., lisinopril 10 mg p.o., propranolol 10 mg p.o., spironolactone 25 mg p.o. Plan: - US paracentesis abd w/image- pending -Avoid hepatotoxic agents. -No significant lower extremity edema but ascites present with umbilical hernia. US paracentesis order, pending read - Counseled on outpatient vaccine series - Furosemide 20 mg p.o, propranolol 10 mg p.o., spironolactone 25 mg p.o--> hold if BP is soft #Diabetes mellitus type 2 03/28/25 A1c: 8.5, Glucoses 197. Plan - insulin sliding scale with Accu-Cheks. Target blood sugar 140-180 while hospitalized. #Primary hypertension Home lisinopril 10mg. Plan: - lisinopril 10 mg p.o. Qday # Hyperlipidemia Home: rosuvastatin 10mg. Lipid panel: Triglyceride 130, cholesterol 88, LDL cholesterol 46, HDL cholesterol 16 Plan: - Order lipid panel. - Resume home statin when tolerating diet. # Pulmonary nodules 03/27/25: tiny 4 mm diameter noncalcified nodules in the left lower lobe on CTAP Plan: - Outpatient surveillance and management. Hospital management: Lines: peripheral IV Diet: Diabetic liquid diet Bowel: n/a GI prophylaxis: pantoprazole DVT prophylaxis: SCDs Disposition: S/P EGD, on octreotide drip CODE STATUS: Full code Patient assessed under supervision of attending physician and senior resident Dr. Woodward PGY-2 Zainab Shankar MD PGY-1, Internal Medicine Please note: this document was transcribed using voice recognition technology; minor inaccuracies may be present. Attending Provider Attestation/Addendum I have examined the patient, reviewed labs and imaging findings, discussed the case with the resident(s), and reviewed entered orders. I agree with the plan of care as outlined in this note. Dr. Misty MD
[2025-03-29] MEDS: cefTRIAXone/D5w 1gm IV premix 1 GM/50 ML BAG IV (14:22)
[2025-03-29 14:47] LABS: Collection Type, Urine Clean Catch; Squamous Epithelial Cell,Urine 0 /hpf (0-5)
[2025-03-29 14:51] LABS: Bilirubin,Urine Negative (Negative); Blood,Urine Negative (Negative); Clarity,Urine Turbid (Clear/Hazy); Color,Urine Yellow (Lt Yel-Yel); Glucose, Urine Negative (Negative); Ketones,Urine Trace (Negative); Leukocyte Esterase,Urine Negative (Negative); Nitrite,Urine Negative (Negative); PH,Urine 5.5 (5.0-7.0); Protein,Urine Negative (Neg - Trace); RBC,Urine 2 /hpf (0-3); Specific Gravity,Urine 1.021 (1.001-1.035); Urobilinogen,Urine Negative mg/dL (0.0-1.0); WBC,Urine 6 /hpf (0-5)
--- NOTE | 2025-03-29 15:56 | PC.SS ---
Rounding: Pending paracenthesis, on Octreotide drip day #2
--- NOTE | 2025-03-29 17:43 | ESPR_ITS ---
Documentation for date of: 03/29/25 Subjective Subjective Interval history: Patient evaluated Hemoglobin hematocrit 7.5 and 22.9 Patient status post band ligation of the esophageal varices Exam Vital Signs Temp Pulse Resp BP Pulse Ox O2 Del Method O2 Flow Rate 97.6 F 96 18 144/85 H 95 Room Air 3 03/29/25 16:00 03/29/25 16:00 03/29/25 16:00 03/29/25 16:00 03/29/25 16:00 03/29/25 16:00 03/28/25 16:55 Objective Labs 03/29/25 05:17 03/29/25 05:17 Labs: Laboratory Results - last 24 hr 03/28/25 03/29/25 03/29/25 18:19 05:17 14:35 WBC 4.3 4.0 RBC 2.89 L 2.86 L Hgb 7.6 L 7.5 L Hct 22.9 L 22.9 L MCV 79 L 80 MCH 26.3 26.2 MCHC 33.2 32.8 RDW Std Deviation 48.5 H 49.1 H Plt Count 89 L 82 L Neut % (Auto) 59 58 Lymph % (Auto) [address] [place] % (Auto) 13 H 13 H Eos % (Auto) 6 7 Baso % (Auto) 1 1 Neut # (Auto) 2.6 2.3 Lymph # (Auto) 0.[address] [place] # (Auto) 0.6 0.5 Eos # (Auto) 0.3 0.3 Baso # (Auto) 0.1 0.1 Immature Gran # (Auto) 0.01 H 0.01 H Absolute Nucleated RBC 0.00 0.00 Immature Gran % 0 0 Nucleated RBC % 0 0 Sodium 141 Potassium 4.2 D Chloride 109 H Carbon Dioxide 22.4 Anion Gap 10 BUN 18 Creatinine 1.0 Estim Creat Clear Calc 76.2 eGFR > 60 BUN/Creatinine Ratio 18 Glucose 158 H Calculated Osmolality 286 Calcium 7.8 L Corrected Calcium 8.9 Total Bilirubin 1.6 H AST 26 ALT < 7 L Alkaline Phosphatase 201 H Total Protein 5.7 Albumin 2.6 L Globulin 3.1 Albumin/Globulin Ratio 0.8 L Ur Collection Type Clean Catch Urine Color Yellow Urine Clarity Turbid A Urine pH 5.5 Ur Specific [place] 1.021 Urine Protein Negative Urine Glucose (UA) Negative Urine Ketones Trace Urine Blood Negative Urine Nitrite Negative Urine Bilirubin Negative Urine Urobilinogen (Auto) Negative Ur Leukocyte Esterase Negative Urine RBC 2 Urine WBC 6 H Ur Squamous Epith Cells 0 Urine Bacteria None Impressions Impression: Status post band ligation of the esophageal varices Anemia blood loss Advance diet Continue octreotide infusion for total of 5-day Assessment & Plan A&P Narrative # Occult GI bleeding in the form of melena # Acute posthemorrhagic anemia # Cirrhotic liver disease with advanced portal hypertension and ascites and previous history of band ligation of the esophageal varices Suggestions Agree with the blood transfusion Octreotide at 50 mcg/h Protonix 40 mg IV push every 12 Serial CBC N.p.o. midnight tonight except meds Consent obtained for fiberoptic esophagogastroduodenoscopy possible biopsy possible therapeutic intervention under intravenous moderate sedation Will follow the patient Other medical problems include Diabetes mellitus type 2 Thank you very much for the opportunity to participate in the care of this patient Time Spent With Patient Time: Total time spent is greater than 50% in coordination of care (as documented) at patient's floor/unit and/or counseling patient:
[2025-03-30] VITALS (11 sets, daily range): BP systolic 115–127; BP diastolic 67–83; PULSE 64–81; RESP 17–20; TEMP 36.1–36.8; O2SAT 93–94; BMI 26.3
[2025-03-30 06:25] LABS: Basophils # (Auto) 0.1 Thou/mm3 (0.0-0.2); Basophils % (Auto) 1 % (0-2.5); Eosinophils # (Auto) 0.3 Thou/mm3 (0.0-0.5); Eosinophils % (Auto) 6 % (0-10); Hematocrit 22.1 % (41.0-53.0); Immature Granulocytes Auto 0.01 Thou/mm3 (0.00-0.00); Lymphocytes # (Auto) 0.8 Thou/mm3 (1.0-4.8); Lymphocytes % (Auto) 20 % (10-50); Mean Corpuscular HGB Conc 33.5 g/dl (31.0-37.0); Mean Corpuscular Hemoglobin 26.9 pg (25.0-35.0); Mean Corpuscular Volume 80 fL (80-100); Monocytes # (Auto) 0.6 Thou/mm3 (0.0-0.8); Monocytes % (Auto) 14 % (0-12); Neutrophils # (Auto) 2.5 Thou/mm3 (1.8-7.7); Neutrophils % (Auto) 59 % (37-80); Nucleated Red Blood Cell # 0.00 Thou/mm3 (0.00-0.00); Nucleated Red Blood Cell % 0 /100 WBC (0); Platelet Count 90 Thou/mm3 (140-440); RDW Standard Deviation 49.3 fL (35.1-43.9); Red Blood Count 2.75 Miln/mm3 (4.50-5.90); White Blood Count 4.2 Thou/mm3 (3.8-10.6)
[2025-03-30 06:33] LABS: Hemoglobin 7.4 g/dL (13.5-16.0)
[2025-03-30 07:02] LABS: Alanine Aminotransferase 13 U/L (10-49); Albumin, Serum 2.5 gm/dL (3.5-5.0); Albumin/Globulin Ratio 0.9 (1.2-2.2); Alkaline Phosphatase 186 U/L (46-116); Anion Gap 9 (7-16); Aspartate Amino Transferase 21 U/L (0-34); BUN/Creatinine Ratio 15 Ratio (12-20); Bilirubin,Total 1.3 mg/dL (0.3-1.2); Blood Urea Nitrogen 15 mg/dL (9-23); Calcium 7.3 mg/dL (8.3-10.6); Calcium (Corrected) 8.5 mg/dL (8.5-10.1); Carbon Dioxide 22.8 mMol/L (20.0-31.0); Chloride 105 mMol/L (98-107); Creatinine (Component) 1.0 mg/dL (0.6-1.3); Estimated Creatinine Clearance 76.2 mL/min (>60); Globulin 2.9 gm/dL (2.3-3.5); Glucose 155 mg/dL (74-106); Magnesium 1.4 mg/dL (1.6-2.6); Osmolality,Calculated 277 (275-295); Phosphorous 3.0 mg/dL (2.4-5.1); Potassium 3.8 mMol/L (3.4-5.1); Sodium 137 mMol/L (136-145); Total Protein 5.4 gm/dL (5.7-8.2); eGFR > 60 See Note
--- NOTE | 2025-03-30 08:00 | XR_ITS ---
Examination: Abdomen sonogram, Limited Date and time of exam: March 30, 2025, 1231 hours INDICATION: Cirrhosis increasing ascites abdominal distention this week Technique: Real-time valenzuela scale transabdominal sonographic images of the upper abdomen obtained. Findings: Minimal ascitic fluid IMPRESSION: Minimal ascitic fluid
[2025-03-30] MEDS: Magnesium Sulfate 4 GM Ivpb 4 GM/50 ML BAG IV (08:31)
[2025-03-30] MEDS: SPIRONOLACTONE 25 MG TABLET PO ×2 (08:33→08:53)
[2025-03-30] MEDS: PROPRANOLOL 10 MG TABLET PO (08:33)
[2025-03-30] MEDS: OCTREOTIDE ACET INJ 1,000 MCG in SODIUM CHLORIDE 0.9% 100 ML 5.1 MCG IV (08:54)
--- NOTE | 2025-03-30 10:45 | PC.SS ---
rounding note: Patient remains on octreotide drip. Not medically stable for d/c yet.
[2025-03-30] MEDS: INSULIN LISPRO (AdmeLOG) 1 UNIT/0.01 ML UNIT SC (11:51)
--- NOTE | 2025-03-30 12:06 | ESPR_ITS ---
<Statement entered by James Woodward MD - 03/30/25 13:43> No acute overnight events. Seen and examined at bedside and patient resting comfortably in bed. Has no complaints at this time. Vital signs stable. CBC showing stable hemoglobin. CHEM panel largely unremarkable with downtrending T. bili and ALT with mildly low magnesium. Abdominal ultrasound showed minimal ascitic fluid and so no paracentesis will be done. Touched base with GI and patient will require octreotide infusion for a total of 5 days, until 04/01. Will continue ceftriaxone 1 g daily, spironolactone 50 mg daily, and propranolol 10 mg daily. ----- Note reviewed and agree with care plan as documented. Please refer to the note below for further details. Plan discussed with attending physician Dr. Misty Woodward MD PGY-2 Internal Medicine Documentation for date of: 03/30/25 Subjective Subjective Interval history: Event overnight. Patient seen and examined at bedside. Saturating well on room air. Vital stable. Patient denies nausea, vomiting, abdominal pain, however does report abdominal bloatedness. Labs reviewed and noted for magnesium 1.4, repleted. T. bili and alkaline phosphatase improving. Abdominal ultrasound showed minimal ascitic fluid, wont be able to do paracentesis. Will continue octreotide ggt ceftriaxone 1 g daily, spironolactone 50 mg daily, and propranolol 10 mg daily. Exam Vital Signs Temp Pulse Resp BP Pulse Ox O2 Del Method O2 Flow Rate 98.3 F 68 17 123/78 94 L Room Air 3 03/30/25 08:00 03/30/25 08:53 03/30/25 08:00 03/30/25 08:53 03/30/25 08:00 03/30/25 08:00 03/28/25 16:55 Narrative Exam General: Alert, no acute distress.Conversational and non-toxic appearing. Skin: Warm, dry, intact. No rash or ecchymoses. pallor areas of hypopigmentation (vitiligo) Head: Normocephalic, atraumatic. Eye: Normal conjunctiva, PERRL. Throat: Oral mucosa moist. No obvious lesions in oropharynx. Cardiovascular: Regular rate and rhythm, no murmur, +S1/S2. Respiratory: Lungs are clear to auscultation, respirations unlabored, no crackles, no wheezing. Gastrointestinal: Soft, nontender, distended. Thin, translucent, membranous protrusion noted at the umbilicus. No guarding or rebound tenderness. Extremities: No edema, no cyanosis, no clubbing. Neuro: Alert and oriented x3.No focal deficits observed. Conversant, moving all extremities. No overt cerebellar signs/incoordination. Psychiatric: Cooperative, appropriate affect Objective Labs 03/31/25 04:23 03/31/25 04:23 Labs: Laboratory Results - last 24 hr 03/29/25 03/30/25 14:35 04:49 WBC 4.2 RBC 2.75 L Hgb 7.4 L Hct 22.1 L MCV 80 MCH 26.9 MCHC 33.5 RDW Std Deviation 49.3 H Plt Count 90 L Neut % (Auto) 59 Lymph % (Auto) 20 [place] % (Auto) 14 H Eos % (Auto) 6 Baso % (Auto) 1 Neut # (Auto) 2.5 Lymph # (Auto) 0.8 L [place] # (Auto) 0.6 Eos # (Auto) 0.3 Baso # (Auto) 0.1 Immature Gran # (Auto) 0.01 H Absolute Nucleated RBC 0.00 Immature Gran % 0 Nucleated RBC % 0 Sodium 137 Potassium 3.8 Chloride 105 Carbon Dioxide 22.8 Anion Gap 9 BUN 15 Creatinine 1.0 Estim Creat Clear Calc 76.2 eGFR > 60 BUN/Creatinine Ratio 15 Glucose 155 H Calculated Osmolality 277 Calcium 7.3 L Corrected Calcium 8.5 Phosphorus 3.0 Magnesium 1.4 L Total Bilirubin 1.3 H AST 21 ALT 13 Alkaline Phosphatase 186 H Total Protein 5.4 L Albumin 2.5 L Globulin 2.9 Albumin/Globulin Ratio 0.9 L Ur Collection Type Clean Catch Urine Color Yellow Urine Clarity Turbid A Urine pH 5.5 Ur Specific [place] 1.021 Urine Protein Negative Urine Glucose (UA) Negative Urine Ketones Trace Urine Blood Negative Urine Nitrite Negative Urine Bilirubin Negative Urine Urobilinogen (Auto) Negative Ur Leukocyte Esterase Negative Urine RBC 2 Urine WBC 6 H Ur Squamous Epith Cells 0 Urine Bacteria None Quality Measures Quality Measures none Assessment & Plan Assessment Current Active Medications: Generic Name Dose Route Start Last Admin Trade Name Freq PRN Reason Stop Dose Admin Acetaminophen 650 mg 03/27/25 17:19 Acetaminophen 325 Mg Tablet PO 04/26/25 17:18 Q6H PRN Fever >101.5 Atorvastatin Calcium 40 mg 03/28/25 16:00 Atorvastatin Calcium 20 Mg Tablet PO 04/27/25 15:59 On Hold: 03/28/25 16:00 QDAY NICK Dextrose 25 ml 03/27/25 17:56 Dextrose 50%-Water Inj 50 Ml Syringe IV 04/26/25 17:55 Q15MIN PRN BG 50-70 responsive npo pt Dextrose 50 ml 03/27/25 17:56 Dextrose 50%-Water Inj 50 Ml Syringe IV 04/26/25 17:55 Q15MIN PRN BG <50 OR BG <70 & pt unresponsive Furosemide 20 mg 03/29/25 09:00 03/30/25 08:32 Furosemide 20 Mg Tablet PO 04/28/25 08:59 20 mg QDAY NICK Administration Glucagon 1 mg 03/27/25 17:56 Glucagon Inj 1 Mg Vial IM Q15MIN PRN BG <70, and no IV access Octreotide Acetate 1,000 mcg/ 102 mls @ 5.1 mls/hr 03/28/25 15:45 03/30/25 08:54 Sodium Chloride IV 04/01/25 19:44 50 mcg/hr .Q20H NICK 5.1 mls/hr Protocol Administration 50 MCG/HR Ceftriaxone Sodium/Dextrose 1 gm in 50 mls @ 100 mls/hr 03/27/25 17:30 03/29/25 14:22 Rocephin/D5w 1gm Iv Premix IV 04/03/25 17:29 100 mls/hr QDAY@1400 NICK Administration Insulin Human Lispro 0 unit 03/28/25 06:00 03/30/25 11:51 Insulin Lispro (Admelog) 1 Unit/0.01 Ml Unit SC 04/27/25 05:59 3 unit Q6HR NICK Administration Protocol Lisinopril 10 mg 03/29/25 09:00 03/30/25 08:32 Lisinopril 2.5 Mg Tablet PO 04/28/25 08:59 10 mg QDAY NICK Administration Ondansetron HCl 4 mg 03/27/25 17:19 Ondansetron Inj 2 Mg/Ml Inj 2 Ml IVP 04/26/25 17:18 Q6H PRN NAUSEA OR VOMITING Protocol Pantoprazole Sodium 40 mg 03/30/25 09:00 03/30/25 08:42 Pantoprazole Inj 40 Mg Vial IVP 04/29/25 08:59 Not Given QDAY NICK Propranolol HCl 10 mg 03/29/25 09:00 03/30/25 08:33 Propranolol 10 Mg Tablet PO 04/28/25 08:59 10 mg QD NICK Administration Spironolactone 50 mg 03/30/25 09:00 03/30/25 08:46 Spironolactone 25 Mg Tablet PO 04/29/25 08:59 Not Given QDAY NICK Plan Mr. Taylor is a 55-year-old male with a medical history of cirrhosis secondary to alcohol use, splenomegaly, GI bleeds, diabetes mellitus type 2, primary hypertension, hyperlipidemia, vitamin D deficiency, and vitiligo presents to [facility] emergency department on 03/27/2025 with chief complaint of dark stools. #Grade III esophageal varices, banded #Upper GI bleed #Acute posthemorrhagic anemia #Melena Most likely upper GI bleed given presentation with melena and history of esophageal varices evaluated at [facility] 09/[address] Adame. States he had an EGD which showed bleeding varices with 2 band placements On admission hemoglobin 6.4 and MCV 77, and fecal occult blood test positive - Patient is high risk for life-threatening bleed and gastroenterology consulted with plans for EGD. - 2 units PRBCs ordered and follow-up posttransfusion H&H. - 03/28/14 EGD: Grade 3 esophageal varices with stigmata of recent bleeding, incompletely eradicated. Banded. Gastritis, characterized by erythema. Plan: - Transfuse for hemoglobin less than 7, INR greater than 1.5, or platelets less than 50,000 - Continue octreotide gtt and monitor blood sugars. - IV Protonix. - IV Rocephin for SBP prophylaxis (03/27-) - Low-dose IVF - Pain nausea management as needed - Gastroenterology consulted, recommendations appreciated- continue octreotide gtt, advance diet as tolerated #Cirrhosis #Secondary to previous chronic alcohol use #Splenomegaly # Ascites CT abdomen and pelvis :major end-stage cirrhosis of the liver, the liver has also shrunken Signs of synthetic liver dysfunction with hyperbilirubinemia and hypoalbuminemia although no thrombocytopenia or coagulopathy present at this time Patient was counseled on the importance of establishing care with gastroenterology No significant lower extremity edema but ascites present with umbilical hernia. Home regimen: Furosemide 20 mg p.o., lisinopril 10 mg p.o., propranolol 10 mg p.o., spironolactone 25 mg p.o. 03/30: Furosemide 20 mg p.o dc since increase dosage from spironolactone 25 mg- 50mg Plan: - Paracentesis-minimal ascitic fluid on abd us - Propranolol 10 mg p.o., spironolactone 50 mg p.o--> hold if BP is soft - Avoid hepatotoxic agents. - No significant lower extremity edema but ascites present with umbilical hernia. - Counseled on outpatient vaccine series #Diabetes mellitus type 2 03/28/25 A1c: 8.5, Glucoses 197. Plan - insulin sliding scale with Accu-Cheks. Target blood sugar 140-180 while hospitalized. #Primary hypertension Home lisinopril 10mg. Plan: - lisinopril 10 mg p.o. Qday # Hyperlipidemia Home: rosuvastatin 10mg. Lipid panel: Triglyceride 130, cholesterol 88, LDL cholesterol 46, HDL cholesterol 16 Plan: - Ordered lipid panel. - Resume home statin # Pulmonary nodules 03/27/25: tiny 4 mm diameter noncalcified nodules in the left lower lobe on CTAP Plan: - Outpatient surveillance and management. Hospital management: Lines: peripheral IV Diet: Diabetic liquid diet Bowel: n/a GI prophylaxis: pantoprazole DVT prophylaxis: SCDs Disposition: S/P EGD, on octreotide drip CODE STATUS: Full code Patient assessed under supervision of attending physician and senior resident Dr. Woodward PGY-2 Zainab Shankar MD PGY-1, Internal Medicine Please note: this document was transcribed using voice recognition technology; minor inaccuracies may be present. Attending Provider Attestation/Addendum I have examined the patient, reviewed labs and imaging findings, discussed the case with the resident(s), and reviewed entered orders. I agree with the plan of care as outlined in this note. Dr. Misty MD
[2025-03-30] MEDS: cefTRIAXone/D5w 1gm IV premix 1 GM/50 ML BAG IV (13:39)
[2025-03-30] MEDS: ATORVASTATIN CALCIUM 20 MG TABLET 40 MG PO (21:14)
--- NOTE | 2025-03-30 21:20 | PD.IMPROG ---
Documentation for date of: 03/30/25 Subjective Subjective Interval history: Hemoglobin hematocrit 7.4 and 22.1 with a platelet count of 90,000 Patient's status post band ligation of the esophageal varices Exam Vital Signs Temp Pulse Resp BP Pulse Ox O2 Del Method O2 Flow Rate 98.1 F 67 20 121/83 94 L Room Air 3 03/30/25 16:00 03/30/25 16:00 03/30/25 16:00 03/30/25 16:00 03/30/25 16:00 03/30/25 16:00 03/28/25 16:55 Objective Labs 03/30/25 04:49 03/30/25 04:49 Labs: Laboratory Results - last 24 hr 03/27/25 03/30/25 14:28 04:49 WBC 4.2 RBC 2.75 L Hgb 7.4 L Hct 22.1 L MCV 80 MCH 26.9 MCHC 33.5 RDW Std Deviation 49.3 H Plt Count 90 L Neut % (Auto) 59 Lymph % (Auto) 20 [place] % (Auto) 14 H Eos % (Auto) 6 Baso % (Auto) 1 Neut # (Auto) 2.5 Lymph # (Auto) 0.8 L [place] # (Auto) 0.6 Eos # (Auto) 0.3 Baso # (Auto) 0.1 Immature Gran # (Auto) 0.01 H Absolute Nucleated RBC 0.00 Immature Gran % 0 Nucleated RBC % 0 Sodium 137 Potassium 3.8 Chloride 105 Carbon Dioxide 22.8 Anion Gap 9 BUN 15 Creatinine 1.0 Estim Creat Clear Calc 76.2 eGFR > 60 BUN/Creatinine Ratio 15 Glucose 155 H Calculated Osmolality 277 Calcium 7.3 L Corrected Calcium 8.5 Phosphorus 3.0 Magnesium 1.4 L Total Bilirubin 1.3 H AST 21 ALT 13 Alkaline Phosphatase 186 H Total Protein 5.4 L Albumin 2.5 L Globulin 2.9 Albumin/Globulin Ratio 0.9 L Crossmatch See Detail Impressions Impression: GI bleed requiring band ligation of the esophageal varices Continue octreotide Continue to monitor CBC Assessment & Plan A&P Narrative # Occult GI bleeding in the form of melena # Acute posthemorrhagic anemia # Cirrhotic liver disease with advanced portal hypertension and ascites and previous history of band ligation of the esophageal varices Suggestions Agree with the blood transfusion Octreotide at 50 mcg/h Protonix 40 mg IV push every 12 Serial CBC N.p.o. midnight tonight except meds Consent obtained for fiberoptic esophagogastroduodenoscopy possible biopsy possible therapeutic intervention under intravenous moderate sedation Will follow the patient Other medical problems include Diabetes mellitus type 2 Thank you very much for the opportunity to participate in the care of this patient Time Spent With Patient Time: Total time spent is greater than 50% in coordination of care (as documented) at patient's floor/unit and/or counseling patient:
[2025-03-31] VITALS (7 sets, daily range): BP systolic 113–130; BP diastolic 70–85; PULSE 63–78; RESP 18–28; TEMP 36.2–36.9; O2SAT 91–96
[2025-03-31 05:55] LABS: Basophils # (Auto) 0.1 Thou/mm3 (0.0-0.2); Basophils % (Auto) 1 % (0-2.5); Eosinophils # (Auto) 0.3 Thou/mm3 (0.0-0.5); Eosinophils % (Auto) 6 % (0-10); Hematocrit 23.3 % (41.0-53.0); Immature Granulocytes Auto 0.01 Thou/mm3 (0.00-0.00); Lymphocytes # (Auto) 0.9 Thou/mm3 (1.0-4.8); Lymphocytes % (Auto) 19 % (10-50); Mean Corpuscular HGB Conc 33.5 g/dl (31.0-37.0); Mean Corpuscular Hemoglobin 26.8 pg (25.0-35.0); Mean Corpuscular Volume 80 fL (80-100); Monocytes # (Auto) 0.6 Thou/mm3 (0.0-0.8); Monocytes % (Auto) 13 % (0-12); Neutrophils # (Auto) 2.9 Thou/mm3 (1.8-7.7); Neutrophils % (Auto) 61 % (37-80); Nucleated Red Blood Cell # 0.00 Thou/mm3 (0.00-0.00); Nucleated Red Blood Cell % 0 /100 WBC (0); Platelet Count 91 Thou/mm3 (140-440); RDW Standard Deviation 49.4 fL (35.1-43.9); Red Blood Count 2.91 Miln/mm3 (4.50-5.90); White Blood Count 4.8 Thou/mm3 (3.8-10.6)
[2025-03-31] MEDS: OCTREOTIDE ACET INJ 1,000 MCG in SODIUM CHLORIDE 0.9% 100 ML 5.1 MCG IV (06:07)
[2025-03-31 06:26] LABS: Alanine Aminotransferase 11 U/L (10-49); Albumin, Serum 2.6 gm/dL (3.5-5.0); Albumin/Globulin Ratio 0.8 (1.2-2.2); Alkaline Phosphatase 202 U/L (46-116); Anion Gap 8 (7-16); Aspartate Amino Transferase 20 U/L (0-34); BUN/Creatinine Ratio 13 Ratio (12-20); Bilirubin,Total 1.0 mg/dL (0.3-1.2); Blood Urea Nitrogen 14 mg/dL (9-23); Calcium 7.3 mg/dL (8.3-10.6); Calcium (Corrected) 8.4 mg/dL (8.5-10.1); Carbon Dioxide 22.9 mMol/L (20.0-31.0); Chloride 104 mMol/L (98-107); Creatinine (Component) 1.1 mg/dL (0.6-1.3); Estimated Creatinine Clearance 69.3 mL/min (>60); Globulin 3.1 gm/dL (2.3-3.5); Glucose 199 mg/dL (74-106); Magnesium 1.7 mg/dL (1.6-2.6); Osmolality,Calculated 276 (275-295); Phosphorous 2.8 mg/dL (2.4-5.1); Potassium 4.3 mMol/L (3.4-5.1); Sodium 135 mMol/L (136-145); Total Protein 5.7 gm/dL (5.7-8.2); eGFR > 60 See Note
[2025-03-31 07:17] LABS: Hemoglobin 7.8 g/dL (13.5-16.0)
[2025-03-31] MEDS: INSULIN LISPRO (AdmeLOG) 1 UNIT/0.01 ML UNIT SC ×2 (07:52→11:38)
[2025-03-31] MEDS: Magnesium Sulfate 4 GM Ivpb 4 GM/50 ML BAG IV (08:43)
[2025-03-31] MEDS: PROPRANOLOL 10 MG TABLET PO (08:44)
[2025-03-31] MEDS: SPIRONOLACTONE 25 MG TABLET 50 MG PO (08:44)
--- NOTE | 2025-03-31 10:25 | ESPR_ITS ---
<Statement entered by James Woodward MD - 03/31/25 12:35> No acute overnight events. Seen and examined at bedside and does not have any complaints. Denies hematemesis, bloody bowel movements, N/V, or abdominal pain. Vital signs stable. Hemoglobin stable. Chem panel largely unremarkable. Will continue ceftriaxone and octreotide drip for one more day and anticipate discharge within next 24-48 hours. ----- Note reviewed and agree with care plan as documented. Please refer to the note below for further details. Plan discussed with attending physician Dr. Lee Woodward MD PGY-2 Internal Medicine Documentation for date of: 03/31/25 Subjective Subjective Interval history: No acute event overnight. Today patient was seen and examined at bedside. No acute complaint. Denies nausea, vomiting and sbdominal pain. Had 1 bowel movement this morning. Vitals are stable. Labs reviewed and H&H are stable. Magnesium repleted. Will continue antibiotic and octreotide drip for 1 more day. Anticipate discharge in the next 24 to 48 hours. Exam Vital Signs Temp Pulse Resp BP Pulse Ox O2 Del Method O2 Flow Rate 98.4 F 73 19 116/76 96 Room Air 3 03/31/25 08:00 03/31/25 08:44 03/31/25 08:00 03/31/25 08:44 03/31/25 08:00 03/31/25 08:00 03/28/25 16:55 Narrative Exam General: Alert, no acute distress.Conversational and non-toxic appearing. Skin: Warm, dry, intact. No rash or ecchymoses. pallor areas of hypopigmentation (vitiligo) Head: Normocephalic, atraumatic. Eye: Normal conjunctiva, PERRL. Throat: Oral mucosa moist. No obvious lesions in oropharynx. Cardiovascular: Regular rate and rhythm, no murmur, +S1/S2. Respiratory: Lungs are clear to auscultation, respirations unlabored, no crackles, no wheezing. Gastrointestinal: Soft, nontender, distended. Thin, translucent, membranous protrusion noted at the umbilicus. No guarding or rebound tenderness. Extremities: No edema, no cyanosis, no clubbing. Neuro: Alert and oriented x3.No focal deficits observed. Conversant, moving all extremities. No overt cerebellar signs/incoordination. Psychiatric: Cooperative, appropriate affect Objective Labs 03/31/25 04:23 03/31/25 04:23 Labs: Laboratory Results - last 24 hr 03/27/25 03/31/25 14:28 04:23 WBC 4.8 RBC 2.91 L Hgb 7.8 L Hct 23.3 L MCV 80 MCH 26.8 MCHC 33.5 RDW Std Deviation 49.4 H Plt Count 91 L Neut % (Auto) 61 Lymph % (Auto) 19 [place] % (Auto) 13 H Eos % (Auto) 6 Baso % (Auto) 1 Neut # (Auto) 2.9 Lymph # (Auto) 0.9 L [place] # (Auto) 0.6 Eos # (Auto) 0.3 Baso # (Auto) 0.1 Immature Gran # (Auto) 0.01 H Absolute Nucleated RBC 0.00 Immature Gran % 0 Nucleated RBC % 0 Sodium 135 L Potassium 4.3 D Chloride 104 Carbon Dioxide 22.9 Anion Gap 8 BUN 14 Creatinine 1.1 Estim Creat Clear Calc 69.3 eGFR > 60 BUN/Creatinine Ratio 13 Glucose 199 H Calculated Osmolality 276 Calcium 7.3 L Corrected Calcium 8.4 L Phosphorus 2.8 Magnesium 1.7 Total Bilirubin 1.0 AST 20 ALT 11 Alkaline Phosphatase 202 H Total Protein 5.7 Albumin 2.6 L Globulin 3.1 Albumin/Globulin Ratio 0.8 L Crossmatch See Detail Quality Measures Quality Measures none Assessment & Plan Assessment Current Active Medications: Generic Name Dose Route Start Last Admin Trade Name Freq PRN Reason Stop Dose Admin Acetaminophen 650 mg 03/27/25 17:19 Acetaminophen 325 Mg Tablet PO 04/26/25 17:18 Q6H PRN Fever >101.5 Atorvastatin Calcium 40 mg 03/30/25 21:00 03/30/25 21:14 Atorvastatin Calcium 20 Mg Tablet PO 04/29/25 20:59 40 mg HS NICK Administration Dextrose 25 ml 03/27/25 17:56 Dextrose 50%-Water Inj 50 Ml Syringe IV 04/26/25 17:55 Q15MIN PRN BG 50-70 responsive npo pt Dextrose 50 ml 03/27/25 17:56 Dextrose 50%-Water Inj 50 Ml Syringe IV 04/26/25 17:55 Q15MIN PRN BG <50 OR BG <70 & pt unresponsive Glucagon 1 mg 03/27/25 17:56 Glucagon Inj 1 Mg Vial IM Q15MIN PRN BG <70, and no IV access Octreotide Acetate 1,000 mcg/ 102 mls @ 5.1 mls/hr 03/28/25 15:45 03/31/25 06:07 Sodium Chloride IV 04/01/25 19:44 50 mcg/hr .Q20H NICK 5.1 mls/hr Protocol Administration 50 MCG/HR Ceftriaxone Sodium/Dextrose 1 gm in 50 mls @ 100 mls/hr 03/27/25 17:30 03/30/25 13:39 Rocephin/D5w 1gm Iv Premix IV 04/03/25 17:29 100 mls/hr QDAY@1400 NICK Administration Magnesium Sulfate 4 gm in 50 mls @ 12.5 mls/hr 03/31/25 07:59 03/31/25 08:43 Magnesium Sulfate Ivpb IV 03/31/25 11:58 12.5 mls/hr X1 ONE Administration Insulin Human Lispro 0 unit 03/31/25 07:45 03/31/25 07:52 Insulin Lispro (Admelog) 1 Unit/0.01 Ml Unit SC 04/30/25 07:44 3 unit Q6HR NICK Administration Protocol Lisinopril 10 mg 03/29/25 09:00 03/31/25 08:44 Lisinopril 2.5 Mg Tablet PO 04/28/25 08:59 10 mg QDAY NICK Administration Ondansetron HCl 4 mg 03/27/25 17:19 Ondansetron Inj 2 Mg/Ml Inj 2 Ml IVP 04/26/25 17:18 Q6H PRN NAUSEA OR VOMITING Protocol Pantoprazole Sodium 40 mg 03/30/25 09:00 03/31/25 08:43 Pantoprazole Inj 40 Mg Vial IVP 04/29/25 08:59 40 mg QDAY NICK Administration Propranolol HCl 10 mg 03/29/25 09:00 03/31/25 08:44 Propranolol 10 Mg Tablet PO 04/28/25 08:59 10 mg QD NICK Administration Spironolactone 50 mg 03/30/25 09:00 03/31/25 08:44 Spironolactone 25 Mg Tablet PO 04/29/25 08:59 50 mg QDAY NICK Administration Plan Mr. Taylor is a 55-year-old male with a medical history of cirrhosis secondary to alcohol use, splenomegaly, GI bleeds, diabetes mellitus type 2, primary hypertension, hyperlipidemia, vitamin D deficiency, and vitiligo presents to [facility] emergency department on 03/27/2025 with chief complaint of dark stools. #Grade III esophageal varices, banded #Upper GI bleed #Acute posthemorrhagic anemia #Melena Most likely upper GI bleed given presentation with melena and history of esophageal varices evaluated at [facility] 09/[address] Adame. States he had an EGD which showed bleeding varices with 2 band placements On admission hemoglobin 6.4 and MCV 77, and fecal occult blood test positive - Patient is high risk for life-threatening bleed and gastroenterology consulted with plans for EGD. - 2 units PRBCs ordered and follow-up posttransfusion H&H. - 03/28/14 EGD: Grade 3 esophageal varices with stigmata of recent bleeding, incompletely eradicated. Banded. Gastritis, characterized by erythema. Plan: - Transfuse for hemoglobin less than 7, INR greater than 1.5, or platelets less than 50,000 - Continue octreotide gtt(03/28-04/01) and monitor blood sugars. - IV Protonix. - IV Rocephin for SBP prophylaxis (03/27-) - Low-dose IVF - Pain nausea management as needed - Gastroenterology consulted, recommendations appreciated- continue octreotide gtt, advance diet as tolerated #Cirrhosis #Secondary to previous chronic alcohol use #Splenomegaly # Ascites CT abdomen and pelvis :major end-stage cirrhosis of the liver, the liver has also shrunken Signs of synthetic liver dysfunction with hyperbilirubinemia and hypoalbuminemia although no thrombocytopenia or coagulopathy present at this time Patient was counseled on the importance of establishing care with gastroenterology No significant lower extremity edema but ascites present with umbilical hernia. Home regimen: Furosemide 20 mg p.o., lisinopril 10 mg p.o., propranolol 10 mg p.o., spironolactone 25 mg p.o. 03/30: Furosemide 20 mg p.o dc since increase dosage from spironolactone 25 mg- 50mg Plan: - Paracentesis-minimal ascitic fluid on abd us - Propranolol 10 mg p.o., spironolactone 50 mg p.o--> hold if BP is soft - Avoid hepatotoxic agents. - No significant lower extremity edema but ascites present with umbilical hernia. - Counseled on outpatient vaccine series #Diabetes mellitus type 2 03/28/25 A1c: 8.5, Glucoses 197. Plan - insulin sliding scale with Accu-Cheks. Target blood sugar 140-180 while hospitalized. #Primary hypertension Home lisinopril 10mg. Plan: - lisinopril 10 mg p.o. Qday # Hyperlipidemia Home: rosuvastatin 10mg. Lipid panel: Triglyceride 130, cholesterol 88, LDL cholesterol 46, HDL cholesterol 16 Plan: - Atorvastatin 40mg HS # Pulmonary nodules 03/27/25: tiny 4 mm diameter noncalcified nodules in the left lower lobe on CTAP Plan: - Outpatient surveillance and management. Hospital management: Lines: peripheral IV Diet: Diabetic liquid diet Bowel: n/a GI prophylaxis: pantoprazole DVT prophylaxis: SCDs Disposition: S/P EGD, on octreotide drip CODE STATUS: Full code Patient assessed under supervision of attending physician Dr.K Howard and senior resident Dr. Woodward PGY-2 Zainab Shankar MD PGY-1, Internal Medicine Please note: this document was transcribed using voice recognition technology; minor inaccuracies may be present. Attending Provider Attestation/Addendum I, Anabella Hwoard, , attest that I was physically present for the cohen portions of the service and evaluated the patient with the resident and I reviewed and discussed the case with the resident and agree with the resident's findings and plans of care as documented above Patient seen and evaluated this AM. He states that he is feeling well. No abdominal pain on palpation. He denies any nausea, vomiting or hematochezia. Continue with octreotide drip. Anticipate DC within next 24h.
[2025-03-31] MEDS: cefTRIAXone/D5w 1gm IV premix 1 GM/50 ML BAG IV (13:30)
--- NOTE | 2025-03-31 21:15 | PD.IMPROG ---
Documentation for date of: 03/31/25 Subjective Subjective Interval history: Patient evaluated Hemoglobin hematocrit 7.8 and 23.3 Status post band ligation of the esophageal varices Exam Vital Signs Temp Pulse Resp BP Pulse Ox O2 Del Method O2 Flow Rate 97.9 F 72 18 123/80 91 L Room Air 3 03/31/25 20:00 03/31/25 20:00 03/31/25 20:00 03/31/25 20:00 03/31/25 20:00 03/31/25 20:00 03/28/25 16:55 Objective Labs 03/31/25 04:23 03/31/25 04:23 Labs: Laboratory Results - last 24 hr 03/31/25 04:23 WBC 4.8 RBC 2.91 L Hgb 7.8 L Hct 23.3 L MCV 80 MCH 26.8 MCHC 33.5 RDW Std Deviation 49.4 H Plt Count 91 L Neut % (Auto) 61 Lymph % (Auto) 19 [place] % (Auto) 13 H Eos % (Auto) 6 Baso % (Auto) 1 Neut # (Auto) 2.9 Lymph # (Auto) 0.9 L [place] # (Auto) 0.6 Eos # (Auto) 0.3 Baso # (Auto) 0.1 Immature Gran # (Auto) 0.01 H Absolute Nucleated RBC 0.00 Immature Gran % 0 Nucleated RBC % 0 Sodium 135 L Potassium 4.3 D Chloride 104 Carbon Dioxide 22.9 Anion Gap 8 BUN 14 Creatinine 1.1 Estim Creat Clear Calc 69.3 eGFR > 60 BUN/Creatinine Ratio 13 Glucose 199 H Calculated Osmolality 276 Calcium 7.3 L Corrected Calcium 8.4 L Phosphorus 2.8 Magnesium 1.7 Total Bilirubin 1.0 AST 20 ALT 11 Alkaline Phosphatase 202 H Total Protein 5.7 Albumin 2.6 L Globulin 3.1 Albumin/Globulin Ratio 0.8 L Impressions Impression: Status post band ligation of the esophageal varices Upper GI bleed Continue octreotide for a completion of total of 5 days Assessment & Plan A&P Narrative # Occult GI bleeding in the form of melena # Acute posthemorrhagic anemia # Cirrhotic liver disease with advanced portal hypertension and ascites and previous history of band ligation of the esophageal varices Suggestions Agree with the blood transfusion Octreotide at 50 mcg/h Protonix 40 mg IV push every 12 Serial CBC N.p.o. midnight tonight except meds Consent obtained for fiberoptic esophagogastroduodenoscopy possible biopsy possible therapeutic intervention under intravenous moderate sedation Will follow the patient Other medical problems include Diabetes mellitus type 2 Thank you very much for the opportunity to participate in the care of this patient Time Spent With Patient Time: Total time spent is greater than 50% in coordination of care (as documented) at patient's floor/unit and/or counseling patient:
[2025-03-31] MEDS: ATORVASTATIN CALCIUM 20 MG TABLET 40 MG PO (21:39)
[2025-04-01] VITALS: BP 118/78; PULSE 67; PULSE 71; RESP 16; TEMP 36.7; O2SAT 91
[2025-04-01] MEDS: INSULIN LISPRO (AdmeLOG) 1 UNIT/0.01 ML UNIT SC ×2 (00:34→12:07)
[2025-04-01] MEDS: OCTREOTIDE ACET INJ 1,000 MCG in SODIUM CHLORIDE 0.9% 100 ML 5.1 MCG IV (03:57)
[2025-04-01 04:00] VITALS: BP 109/74; PULSE 69; PULSE 71; RESP 18; TEMP 36.8; O2SAT 91
[2025-04-01 08:00] VITALS: BP 115/74; PULSE 71; PULSE 82; RESP 21; TEMP 36.3; O2SAT 93
[2025-04-01 08:07] VITALS: BP 115/74; PULSE 71
[2025-04-01] MEDS: PROPRANOLOL 10 MG TABLET PO (08:07)
[2025-04-01 08:09] VITALS: BP 115/74; PULSE 71
[2025-04-01] MEDS: SPIRONOLACTONE 25 MG TABLET 50 MG PO (08:09)
--- NOTE | 2025-04-01 09:26 | ESDS_ITS ---
<Statement entered by Anabella Howard DO - 04/01/25 19:36> I, Anabelal Howard DO, attest that I was physically present for the cohen portions of the service and evaluated the patient with the resident and I reviewed and discussed the case with the resident and agree with the resident's findings and plans of care as documented above <Statement entered by James Woodward MD - 04/01/25 14:24> ----- Note reviewed and agree with care plan as documented. Please refer to the note below for further details. Plan discussed with attending physician Dr. Lee Woodward MD PGY-2 Internal Medicine Planned Discharge Date 04/01/25 DS: Providers Provider Date of admission: 03/27/25 17:19 [facility] Admitting Provider: Ector Jay MD Attending Provider on Admission: Anabella Howard DO Consults: 03/27/25 18:05 Consult to Gastroenterology Stat Comment: Consulting Provider: Humberto Lawton Attending Provider on DC: Anabella Howard MD Discharging Provider: Anabella Howard MD Anticipated date of discharge: 04/01/25 DS: Diagnosis Problem List Completed Was Problem List Reviewed/Reconciled?: Yes Hospital Course Hospital Course Hospital course: Summary Mr. Taylor is a 55-year-old male with a medical history of cirrhosis secondary to alcohol use, splenomegaly, GI bleeds, diabetes mellitus type 2, primary hypertension, hyperlipidemia, vitamin D deficiency, and vitiligo presents to [facility] emergency department on 03/27/2025 with chief complaint of dark stools. In ED stool occult blood positive. Pelvic ultrasound showed minimal ascites, pelvic ultrasound: 3.4 X3 0.0 cm benign left epididymal simple cyst, CT of abdomen and pelvis: cirrhosis with shrunken liver, pulmonary nodules, ascites. ED Management: 2 units PRBCs, IV Protonix 80 mg x 1, 1 L fluid bolus IV x 1. Gastroenteroly consuled and EGD was done that shows grade 3 esophageal varices with stigmata of recent bleeding, incompletely eradicated. Banded. Gastritis, characterized by erythema. Patient was on octreotide gtt for 5 days, Rocephin for SBP prophylaxis. For the ascites paracentesis order but -minimal ascitic fluid,hence unbale to tap. For cirrhosis pt was manage on propranolol 10 mg and spironolactone 50 mg and lisinopril 10 for HTN. Throughout the hospital course patient other problems were managed and her condition improved remarkably with progression of hospital course. Further plan to discharge the patient home since he is stable and responded well to hospital treatment. Discharge recommendation: - Follow up with PCP in 1-2 weeks, If you don't have a PCP, you can make an appointment at the [facility]: - Prescribed spironolactone 50mg - Stop spironolactone 25mg - Hold furosemide 20mg- if blood pressure permits, can resume furosemide - Continue rest of medications as previously prescribed - Return to the ED or call EMS is symptoms return and/or worsen Hospital Diagnoses: #Grade III esophageal varices, banded #Upper GI bleed #Acute posthemorrhagic anemia #Melena #Cirrhosis #Secondary to previous chronic alcohol use #Splenomegaly # Ascites #Diabetes mellitus type 2 #Primary hypertension #Hyperlipidemia #Pulmonary nodules Patient assessed under supervision of attending physician Dr.K Howard and senior resident Dr. Woodward PGY-2 Zainab Shankar MD PGY-1, Internal Medicine Please note: this document was transcribed using voice recognition technology; minor inaccuracies may be present. Time Spent with Patient Time attestation: Total time spent providing and/or coordinating discharge services: Time spent: Greater than 30 minutes Exam Vital Signs Temp Pulse Resp BP Pulse Ox O2 Del Method O2 Flow Rate 97.3 F 71 21 H 115/74 93 L Room Air 3 04/01/25 08:00 04/01/25 08:09 04/01/25 08:00 04/01/25 08:09 04/01/25 08:00 04/01/25 08:00 03/28/25 16:55 Narrative Exam General: Alert, no acute distress.Conversational and non-toxic appearing. Skin: Warm, dry, intact. No rash or ecchymoses. pallor areas of hypopigmentation (vitiligo) Head: Normocephalic, atraumatic. Eye: Normal conjunctiva, PERRL. Throat: Oral mucosa moist. No obvious lesions in oropharynx. Cardiovascular: Regular rate and rhythm, no murmur, +S1/S2. Respiratory: Lungs are clear to auscultation, respirations unlabored, no crackles, no wheezing. Gastrointestinal: Soft, nontender, distended. Thin, translucent, membranous protrusion noted at the umbilicus. No guarding or rebound tenderness. Extremities: No edema, no cyanosis, no clubbing. Neuro: Alert and oriented x3.No focal deficits observed. Conversant, moving all extremities. No overt cerebellar signs/incoordination. Psychiatric: Cooperative, appropriate affect Discharge Plan Plan Patient Disposition: HOME (Self Care) Patient condition on transfer: Stable Care Plan Goals: - Follow up with PCP in 1-2 weeks, If you don't have a PCP, you can make an appointment at the [facility]: - Prescribed spironolactone 50mg - Stop spironolactone 25mg - Stop furosemide 20mg- if blood pressure permits, can re-introduce furosemide - Continue rest of medications as previously prescribed - Return to the ED or call EMS is symptoms return and/or worsen Prescriptions/Referrals Prescriptions/Med Rec: New spironolactone 50 mg tablet 50 mg PO QAM 30 Days Qty: 30 0RF Continued lisinopril 10 mg Tablet 10 mg PO QDAY propranolol 10 mg tablet 10 mg PO .QD metformin 1,000 mg tablet extended release 24hr 1,000 mg PO BID rosuvastatin 10 mg tablet 10 mg PO QDAY pantoprazole 40 mg tablet,delayed release (DR/EC) 40 mg PO QDAY Patient Comments: TAKE 1 TABLET BY MOUTH TWICE DAILY Discontinued spironolactone 25 mg tablet 25 mg PO QDAY Patient Comments: TAKE 1 TABLET BY MOUTH EVERY DAY furosemide 20 mg tablet 20 mg PO QDAY Patient Comments: TAKE 1 TABLET BY MOUTH EVERY DAY Referrals: Jossue)Yoly PA-C [Primary Care Provider] Patient/Caregiver Discharge Instructions Education Materials: Paracentesis Dc Print Language: Pashto Stand Alone Forms: Janette Award Info., Patient Portal Info Letter Discharge Order Discharge Orders: Discharge (Routine); Ordered 04/01/25 Ordered By: James Woodward Quality Discharge Quality Measures VTE prophylaxis
[2025-04-01 12:00] VITALS: BP 129/83; PULSE 69; PULSE 89; RESP 20; TEMP 36.7; O2SAT 94
== END 2025-04-01 13:04 | disposition home or self-care (01) | DRG 280 ==
LOC: SERX 17:17 → SERHOLD 17:29 → S3NX 21:04
PROVIDERS: Specialist; Admitting Provider Student in an Organized Health Care Education/Training Program; Emergency Provider Family Medicine; PCP Nurse Practitioner Family; Visit Provider Internal Medicine
PROC: 06L38CZ Occlusion of Esophageal Vein with Extraluminal Device, Via Natural or Artificial Opening Endoscopic (ICD-10-PCS; CPT 43239; principal; 2025-03-28 16:00)
DX: K70.31 Alcoholic cirrhosis of liver with ascites (principal); R16.1 Splenomegaly, not elsewhere classified; E11.9 Type 2 diabetes mellitus without complications; E78.5 Hyperlipidemia, unspecified; I10 Essential (primary) hypertension; E55.9 Vitamin D deficiency, unspecified; D62 Acute posthemorrhagic anemia; R91.8 Other nonspecific abnormal finding of lung field; K42.9 Umbilical hernia without obstruction or gangrene; K76.6 Portal hypertension; K21.9 Gastro-esophageal reflux disease without esophagitis; F10.10 Alcohol abuse, uncomplicated; K29.71 Gastritis, unspecified, with bleeding; I85.11 Secondary esophageal varices with bleeding; Z79.899 Other long term (current) drug therapy
CPT/HCPCS: 36415; 71045; 74176; 76705; 80053; 80061; 81001; 82042; 82150; 82270; 82945; 83036; 83615; 83690; 83735; 84100; 84157; 85025; 85610; 85730; 86850; 86870; 86900; 86901; 86902; 86921; 86922; 87070; 87075; 87205; 89051; 93005; 99284; A4649; J0696; J1200; J1815; J2250; J2354; J2470; J3010; J3475; J7030; J7050; P9016; A9270

== ENCOUNTER → 2025-03-27 | Outpatient (CLI) | payer MEDICAID, SELFPAY ==
--- NOTE | 2025-03-27 | XR_ITS ---
EXAMINATION: Testicular sonography complete TECHNIQUE: Grayscale sonographic images testes, assessment arterial inflow and venous outflow Doppler spectral analysis color flow analysis Date and time: March 27, 2025, 1131 hours INDICATIONS: Left lower abdominal pain beginning 1 month ago FINDINGS: Right testis 4.1 cm epididymis 1.3 cm Arterial flow the testicle. No testicular mass Calcifications in the right scrotal sac, the largest 7 mm Mild hydrocele Left testis 3.6 cm epididymis 3.9 cm 3.0 cm left epididymal cyst Arterial flow the testicle. No testicular mass Mild hydrocele IMPRESSION: No testicular torsion or testicular mass 3.4 x 3.0 cm benign left epididymal cyst
--- NOTE | 2025-03-27 | XR_ITS ---
Examination: Pelvic ultrasound, transabdominal, complete Technique: Transabdominal ultrasound of the pelvis performed using grayscale imaging Date and time of exam: March 27, 2025, 1116 hours INDICATIONS: Left lower abdominal pain beginning 1 month ago FINDINGS: Significant ascites No solid pelvic mass No bladder mass or bladder calculi Normal prostate IMPRESSION: Significant ascites
== END | disposition home or self-care (01) ==
PROVIDERS: PCP Nurse Practitioner Family; Referring Provider Nurse Practitioner Family; Visit Provider Nurse Practitioner Family
DX: R18.8 Other ascites (principal); N50.3 Cyst of epididymis
CPT/HCPCS: 76856; 76870